=== PATIENT | male | born 1975 | race Caucasian/White ===

== ENCOUNTER → 2016-12-01 | Outpatient (CLI) | payer MEDICARE, MEDICAID ==
[~2016-12-01] MED LIST: PERC5TAB12 PO
--- NOTE | 2016-12-07 00:01 | ECWPNPC ---
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 PAIN THE PATIENT DESCRIBES THE PAIN... FALL RISK SCREENING: SCREENING :NO FALLS IN THE PAST YEAR CURRENT MEDICATIONS TAKING LISINOPRIL 30 MG TABLET 1 TABLET ORALLY ONCE A DAY TAKING TOUJEO SOLOSTAR 300 UNIT/ML SOLUTION PEN-INJECTOR 83 UNITS SUBCUTANEOUS DAILY TAKING METFORMIN HCL 1000 MG TABLET 1 TABLET WITH MEALS ORALLY TWICE A DAY TAKING ATORVASTATIN CALCIUM 40 MG TABLET 1 TABLET ORALLY ONCE A DAY TAKING UNIFINE PENTIPS 31G X 5 MM MISCELLANEOUS DIRECTED ONCE DAILY TAKING PERCOCET 5-325 MG TABLET 1 TABLET NEEDED ORALLY EVERY 6 HRS TAKING OXYCODONE HCL 15 MG TABLET 1 TABLET NEEDED ORALLY BID MEDICATION LIST REVIEWED AND RECONCILED WITH THE PATIENT PAST MEDICAL HISTORY DIABETES MELLITUS TYPE 2 HYPERTENSION HYPERLIPIDEMIA BROKEN BACK FOLLOWING INJURY CUTTING STEEL TANK PER OLD RECORDS, HISTORY OF NARCOTIC ABUSE AND MISUSE ALLERGIES VICODIN: DIARRHEA: ALLERGY SURGICAL HISTORY BACK SURGERY, FOLLOWS WITH DR. JONATHAN ORTIZ 2004 FAMILY HISTORY FATHER: 78 YRS, RENAL FAILURE, DIAGNOSED WITH HEART DISEASE MOTHER: ALIVE 66 YRS SIBLINGS: ALIVE, SISTER -- HEROIN ABUSE IN TREATMENT 2 BROTHER(S) , 2 SISTER(S) . 3 SON(S) , 1 DAUGHTER(S) - HEALTHY. 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 DIET: LOW CONCENTRATED SWEETS. MARITAL STATUS: SINGLE. OTHERS AT HOME: GIRLFRIEND, CHILDREN. ISLAM ISLAM NO CHURCH BELIEFS THAT WOULD IMPACT HEALTH CARE. LEARNING BARRIERS / SPECIAL NEEDS BARRIERS TO LEARNING?NO HEARING IMPAIRED?NO VISION IMPAIRED?NO COGNITIVELY IMPAIRED?NO READINESS TO LEARN?YES LEARNING PREFERENCES?NO LEARNING CAPABILITIES PRESENT?YES EMOTIONAL BARRIERS?NO SPECIAL DEVICES?NO PLACEMENT COORDINATOR NEEDED?NO ADVANCE DIRECTIVES HEALTH CARE PROXY?NO WOULD YOU LIKE MORE INFORMATION?NO DO YOU HAVE A DNR?NO WOULD YOU LIKE MORE INFORMATION?NO LIVING WILL?NO WOULD YOU LIKE MORE INFORMATION?NO POWER OF WATER TREATMENT PLANT SUPERVISOR?NO WOULD YOU LIKE MORE INFORMATION?NO HOSPITALIZATION/MAJOR DIAGNOSTIC PROCEDURE CRUSHED BY KINDRA 1989 REVIEW OF SYSTEMS REVIEWED BY: PROVIDER: LARA ALMEIDA . CONSTITUTIONAL: ANY CHANGE IN YOUR MEDICAL CONDITION? NO . CHILLS NO . FEVER NO . INFECTION: DO YOU HAVE NEW INFECTIONS? NO . DO YOU HAVE HISTORY OF MRSA? NO . MUSCULOSKELETAL: ANY NEW PATTERNS OF PAIN OR NUMBNESS? NO, PT STATES HE WAS BEING TREATED FOR PAIN BY PCP, DR. ROBBINS. PT STATES HE WAS SENT HERE FOR PAIN CONTROL WITH PAIN MEDS BY DR. ROBBINS. . GASTROENTEROLOGY: ANY NEW CHANGE IN BOWEL CONTROL? NO . GENITOURINARY: ANY NEW CHANGE IN BLADDER CONTROL? NO . IS THERE A CHANCE YOU COULD BE ? NO . HEMATOLOGY/LYMPH: DO YOU TAKE ANY BLOOD THINNERS? (FOR EXAMPLE- COUMADIN, PLAVIX, AGGRENOX, PLATEL, PRADAXA, OR XARELTO) NO . WHEN WAS YOUR LAST DOSE? DATE: TIME: . NEUROLOGY: HAVE YOU FALLEN IN THE PAST 6 MONTHS? NO . ANY NEW EXTREMITY NUMBNESS OR WEAKNESS? NO . CARDIOLOGY: DO YOU HAVE A PACEMAKER OR DEFIBRILLATOR? NO . RESPIRATORY: HAVE YOU BEEN SICK IN THE PAST WEEK? NO . FEVER NO . FLU LIKE SYMPTOMS? NO . COUGH NO . INTEGUMENTARY: DO YOU HAVE ANY RASHES OR OPEN SORES? NO . ALLERGIC/IMMUNO: ARE YOU ALLERGIC TO SHELLFISH OR IV DYE? NO . ANY NEW ALLERGIES? NO . PSYCHIATRIC: DO YOU HAVE THOUGHTS OF HURTING YOURSELF OR SOMEONE ELSE? NO . ARE YOU ABUSED, NEGLECTED, OR IN AN UNSAFE ENVIRONMENT? NO . ENDOCRINOLOGY: ARE YOU DIABETIC? YES . OTHER: DO YOU NEED ANY PRESCRIPTIONS? YES, PAIN MEDS . IF YES, PLEASE LIST: ____ . ANY NEW PROBLEMS WITH YOUR MEDICATIONS? NO . WHEN DID YOU LAST EAT? ____ . WHEN DID YOU LAST DRINK? ____ . WHAT DID YOU LAST DRINK? ____ . NAME OF PERSON DRIVING YOU HOME? ____ . DO YOU HAVE ANY OTHER QUESTIONS OR CONCERNS NO . VITAL SIGNS WT 169.4 LBS, HT 71", BMI 23.62 INDEX, BP 144/92 MM HG, HR 96 /MIN, RR 16 /MIN, TEMP 97.7 F, OXYGEN SAT % 98%, SAFE IN ENV? (Y/N) Y, NA INITIALS TL 1302, REVIEWED BY: EM. EXAMINATION GENERAL EXAMINATION: GENERAL APPEARANCE:COMFORTABLE. PSYCHALERT , ORIENTED X 3 . HEENT:NORMOCEPHALIC.PERRLA. NECK:NO LYMPHADENOPATHY, NO THYROID ABNORMALITY. LUNGS:LUNG ESPINO ARE CLEAR TO AUSCULTATION BILATERALLY. GOOD MOVEMENT OF AIR. HEART:S1, S2 IN A REGULAR RATE AND RHYTHM. NO SIGNIFICANT MURMURS, RUBS OR GALLOPS NOTED. BACK:MILD TENDERNESS WITH PALPATION L/S SPINE AND LUMBAR PARASPINALS.WELL HEALED SURGICAL SCAR NOTED. LUMBAR SPINE/LOWER BACK: MOTOR SYSTEM:5/5 BLE. SENSORY EXAM:NORMAL. GAIT:UNREMARKABLE. ASSESSMENTS LUMBAGO WITH SCIATICA, LEFT SIDE - M54.42 (PRIMARY) OTHER CHRONIC PAIN - G89.29 TREATMENT LUMBAGO WITH SCIATICA, LEFT SIDE NOTES: RISKS AND BENEFITS OF NARCOTIC/OPIOD MEDICATIONS WERE REVIEWED WITH PATIENT - THIS INCLUDES BUT IS NOT LIMITED TO RISK OF DEPENDANCE/DEVELOPMENT OF ADDICTION, MOOD DISTURBANCE AND DEPRESSION, OSTEOPOROSIS, HORMONAL AND LABIDAL CHANGES, RESPIRATORY DEPRESSION AND . PATIENT SEEMS RECEPTIVE TO SLOWLY DECREASE AND DISCONTINUE PAIN MEDICATION.STATES HE DOESNT WANT TO BE ON THEM ANYMORE.INFORMED HOW TO SLOWLY DECREASE AND DISCONTINUE PAIN MEDICATION.OFFERED CLONIDINE FOR WITHDRAWAL SYMPTOMS BUT PATIENT DECLINED. PROCEDURE CODES FA211 ESTABILISHED PATIENT [facility] CHARGE G8730 PAIN ASSESS POS TOOL F/U PLAN DOC G8427 DOC MEDS VERIFIED W/PT OR RE DISPOSITION & COMMUNICATION FOLLOW UP 4 WEEKS ELECTRONICALLY SIGNED BY JUAN PABLO FOREBS ON 12/06/2016 AT 01:01 PM EDT DISCLAIMER : THIS IS A VISIT SUMMARY EXTRACTED FROM THE [employer] CHART. IT IS NOT A COPY OF THE [employer] PROGRESS NOTE. ILANA
== END ==
LOC: M PAIN 13:20
PROVIDERS: ATTEND Nurse Practitioner Family
DX: G89.29 Other chronic pain (principal); M54.42 Lumbago with sciatica, left side; E11.9 Type 2 diabetes mellitus without complications; I10 Essential (primary) hypertension; E78.5 Hyperlipidemia, unspecified; Z79.84 Long term (current) use of oral hypoglycemic drugs; Z79.891 Long term (current) use of opiate analgesic; Z79.4 Long term (current) use of insulin; Z79.899 Other long term (current) drug therapy; Z88.5 Allergy status to narcotic agent; Z87.898 Personal history of other specified conditions
CPT/HCPCS: G0463 ×2

== ENCOUNTER 2017-02-12 21:18 | Emergency (ER) | payer MEDICARE, MEDICAID ==
[~2017-02-12] VITALS: Ht 177.8 cm; Wt 75.0 kg
[2017-02-12 21:19] VITALS: BP 153/92
== END 2017-02-12 21:59 | disposition left against medical advice (07) ==
LOC: M ED 21:18
DX: R68.89 Other general symptoms and signs (principal); Z53.29 Procedure and treatment not carried out because of patient's decision for other reasons

== ENCOUNTER 2017-03-12 11:31 | Emergency (ER) | payer MEDICARE, MEDICAID ==
[~2017-03-12] VITALS: Ht 177.8 cm; Wt 75.0 kg
[2017-03-12] MEDS ORDERED: MORPHINE 4 MG/ML 1ML SYRINGE IV ONE (12:30)
--- NOTE | 2017-03-12 13:26 | REP ---
LUMBAR SPINE, FIVE VIEWS: HISTORY: Back pain. The patient is status post L5-S1 anterior and posterior spinal fusion and laminectomy. Bone graft material is present anteriorly and metal rods and pedicle screws posteriorly. The inferior screws at the S1 level are broken. There is no acute fracture. The L3-4 through L5-S1 intervertebral discs are decreased in height consistent with disc degeneration. An osteophyte is present on L3. The visualized facets are normal in appearance. There are 8 mm of grade 1 spondylolisthesis of L5 on S1. IMPRESSION: 1. The patient is status post L5-S1 anterior and posterior spinal fusion and laminectomy. 2. Degenerative change as described above. Signed by Derrell Lee MD 03/12/2017 01:47 P
[2017-03-12] MEDS ORDERED: PERC5TAB12 PO (13:27)
[2017-03-12 13:49] VITALS: BP 127/71
== END 2017-03-12 13:50 | disposition home or self-care (01) ==
LOC: M ED 11:31
DX: G89.29 Other chronic pain (principal); M54.5 Low back pain; Z98.1 Arthrodesis status

== ENCOUNTER 2017-04-25 15:19 | Emergency (ER) | payer MEDICARE, MEDICAID ==
[~2017-04-25] VITALS: Ht 177.8 cm; Wt 75.0 kg
[2017-04-25] MEDS ORDERED: TYLE325T5 PO (15:27)
--- NOTE | 2017-04-25 18:20 | REP ---
Clinical: Pain. Technique: Internal rotation, external rotation, and Y view. Findings: Subtle spurring and cortical irregularity along the inferomedial aspect of the humeral head cannot be excluded and may represent old trauma. No acute fracture dislocation. Acromioclavicular joint and glenoid rim appear normal. Surrounding soft tissues are unremarkable. Impression: Cannot exclude degenerative changes and/or old injury involving the humeral head. No acute fracture or dislocation. Signed by Linwood Tomlinson MD 04/25/2017 06:11 P
--- NOTE | 2017-04-25 18:23 | REP ---
Clinical: Pain with history of prior surgery. Technique: AP, lateral, bilateral oblique and coned-down views of the lumbosacral spine. Comparison: 03/12/2017. Findings: The patient is status post laminectomy and posterior fusion at the L5-S1 level with chronic stable mild anterolisthesis unchanged. The remainder of the lumbosacral spine appears intact and relatively normal. No acute fracture / compression injury or subluxation. Impression: Stable examination. No acute fracture / compression injury or subluxation. Postsurgical changes at the L5-S1 level remain stable. Signed by Linwood Tomlinson MD 04/25/2017 06:13 P
[2017-04-25] MEDS ORDERED: ULTR50TA8 PO (18:50)
[2017-04-25] MEDS ORDERED: NAPR500T PO (18:50)
[2017-04-25 18:59] VITALS: BP 155/92
== END 2017-04-25 19:01 | disposition home or self-care (01) ==
LOC: M ED 15:19
DX: G89.29 Other chronic pain (principal); M54.5 Low back pain; M25.511 Pain in right shoulder; E11.9 Type 2 diabetes mellitus without complications

== ENCOUNTER 2017-11-23 16:46 | Emergency (ER) | payer MEDICARE, MEDICAID | END 2017-11-23 18:12 | disposition home or self-care (01) | LOC: M ED 16:46 | DX: S46.011A Strain of muscle(s) and tendon(s) of the rotator cuff of right shoulder, initial encounter (principal); X58.XXXA Exposure to other specified factors, initial encounter; Y92.9 Unspecified place or not applicable; Y93.89 Activity, other specified; Y99.9 Unspecified external cause status; K04.7 Periapical abscess without sinus; R20.2 Paresthesia of skin; E11.9 Type 2 diabetes mellitus without complications; G89.29 Other chronic pain; M54.5 Low back pain | CPT/HCPCS: 99283 ==

== ENCOUNTER → 2018-02-02 | Outpatient (CLI) | payer MEDICARE, MEDICAID | LOC: M ADAMS 12:05 | DX: M54.41 Lumbago with sciatica, right side (principal); Z98.1 Arthrodesis status; Z98.890 Other specified postprocedural states | CPT/HCPCS: 72110 ==

== ENCOUNTER → 2018-10-24 | Outpatient (REF) ==
[~2018-10-24] MED LIST changes: +AUGM500T34 PO; +HYDR-3715 PO; +NAPR-837 PO; +PRED20TA PO; +TYLE325T5 PO; +ULTR50TA8 PO
--- NOTE | 2018-10-24 14:40 | REP ---
AP AND LATERAL CERVICAL SPINE, THREE VIEWS: HISTORY: Degenerative disc disease. There is no acute fracture or subluxation. The C5-6 intervertebral disc is decreased in height consistent with disc degeneration. Osteophytes are present on C5-7. IMPRESSION: Degenerative change as described above. Electronically Signed by Derrell Lee MD 10/24/2018 02:41 P
--- NOTE | 2018-10-24 15:17 | REP ---
PARTIAL LUMBAR SPINE, THREE VIEWS: HISTORY: Degenerative disc disease. COMPARISON: 02/02/2018. The patient is status post L5-S1 anterior and posterior spinal fusion and laminectomy. Metal hardware and bone graft material are present. There is no acute fracture. The L3-4 through L5-S1 intervertebral discs are decreased in height consistent with disc degeneration. Osteophyte is present on L4. There are 9 mm of grade 1 spondylolisthesis of L5 on S1. Pedicle screws at the S1 level are broken. IMPRESSION: 1. The patient is status post L5-S1 anterior and posterior spinal fusion and laminectomy. 2. Degenerative change as described above. Electronically Signed by Derrell Lee MD 10/24/2018 03:21 P
== END ==
LOC: M SMT 13:39
PROVIDERS: ATTEND Internal Medicine
DX: Z02.71 Encounter for disability determination (principal)

== ENCOUNTER 2019-07-17 19:40 | Emergency (ER) | payer MEDICARE, MEDICAID ==
[~2019-07-17] VITALS: Ht 177.8 cm; Wt 84.1 kg
[2019-07-17] MEDS ORDERED: ADACEL/BOOSTRIX VACCINE (DIPHTH/PERTUSS/ACELL/TETANUS)0.5ML SYR (90715) IM ONE (21:30)
[2019-07-17] MEDS ORDERED: NORCO, ANEXSIA 5/325MG TABLET (HYDROcodone/ACETAMINOPHEN) PO ONE (21:30)
[2019-07-17] MEDS ORDERED: NEOSPORIN OINT 0.9 GM PKT (FLOOR STOCK) TOP ONE (21:30)
[2019-07-17] MEDS ORDERED: NORC1TAB7 PO (21:53)
[2019-07-17 22:40] VITALS: BP 139/88
== END 2019-07-17 22:43 | disposition home or self-care (01) ==
LOC: M ED 19:40
DX: T26.02XA Burn of left eyelid and periocular area, initial encounter (principal); T20.26XA Burn of second degree of forehead and cheek, initial encounter; X13.1XXA Other contact with steam and other hot vapors, initial encounter; Y92.89 Other specified places as the place of occurrence of the external cause; E11.9 Type 2 diabetes mellitus without complications

== ENCOUNTER 2020-06-11 15:52 | Emergency (ER) | payer MEDICARE, MEDICAID ==
[~2020-06-11] VITALS: Ht 177.8 cm; Wt 76.5 kg
[~2020-06-11 15:52] MED LIST changes: +NORC1TAB7 PO
--- NOTE | 2020-06-11 16:16 | REP ---
INDICATION: FALL COMPARISON: None. TECHNIQUE: AP, lateral, bilateral oblique views right wrist. FINDINGS: There is a comminuted Colles' fracture of the distal radial metaphysis with overlying soft tissue swelling. Distal ulna and carpal bones appear intact. IMPRESSION: Comminuted Colles' fracture of the distal radial metaphysis. <Electronically signed by Linwood Tomlinson > 06/11/20 0680
[2020-06-11] MEDS ORDERED: PERC5TAB12 PO (16:59)
[2020-06-11] MEDS ORDERED: PERCOCET 5MG/325MG TAB PO ONE (17:00)
[2020-06-11 17:23] VITALS: BP 131/75
== END 2020-06-11 17:24 | disposition home or self-care (01) ==
LOC: M ED 15:52
DX: S52.531A Colles' fracture of right radius, initial encounter for closed fracture (principal); W19.XXXA Unspecified fall, initial encounter; Y92.018 Other place in single-family (private) house as the place of occurrence of the external cause; E11.9 Type 2 diabetes mellitus without complications; M54.5 Low back pain

== ENCOUNTER → 2020-06-16 | Outpatient (CLI) | payer MEDICARE, MEDICAID | LOC: M LABSMTC 11:22 | PROVIDERS: ATTEND Anesthesiology | DX: Z01.812 Encounter for preprocedural laboratory examination (principal); Z20.822 Contact with and (suspected) exposure to COVID-19 ==

== ENCOUNTER 2020-06-17 09:26 | Day surgery (SDC) | payer MEDICARE, MEDICAID ==
[~2020-06-17] VITALS: Ht 177.8 cm; Wt 73.9 kg
[~2020-06-17 09:26] MED LIST changes: +LIDOCAINE 1% MDV 20ML VIAL SQ PRN; +LR 1,000 ML IV ONE; +MIDAZOLAM INJ 2MG/2ML VIAL (J2250 PER 1MG) IV PRN; +ceFAZolin SOD 2 GM in IV 1 EA IV ONE; +fentaNYL 100 MCG/2 ML INJECTION (J3010) IV PRN
[2020-06-17] MEDS ORDERED: HumaLOG INSULIN (NovoLOG) PER UNIT SC ONE ×2 (10:45→13:30)
[2020-06-17] MEDS ORDERED: fentaNYL 250 MCG/5 ML INJECTION (J3010) As Ordered ONE (10:54)
[2020-06-17] MEDS ORDERED: LIDOCAINE 2% 100MG/5ML SDV (FOR ANES.) As Ordered ONE (10:54)
[2020-06-17] MEDS ORDERED: propofoL 200 MG/20 ML VIAL As Ordered ONE (10:54)
[2020-06-17] MEDS ORDERED: MIDAZOLAM INJ 2MG/2ML VIAL (J2250 PER 1MG) As Ordered ONE ×2 (10:54→13:58)
[2020-06-17] MEDS ORDERED: dexameTHASONE 4 MG/ML 1ML VIAL (J1100 PER 1MG) As Ordered ONE ×2 (10:54→11:12)
[2020-06-17] MEDS ORDERED: LIDOCAINE W/EPINEPHRINE 1% 20ML VIAL As Ordered ONE (11:18)
[2020-06-17] MEDS ORDERED: ACETAMINOPHEN 1000MG 100ML IV BTL (OFIRMEV) (J0131 PER 10MG) As Ordered ONE (12:29)
[2020-06-17] MEDS ORDERED: PHENYLephrine HCL 500 MCG/5 ML (100MCG/ML) SYRINGE (J2370) As Ordered ONE (12:54)
--- NOTE | 2020-06-17 13:08 | REP ---
INDICATION: ORIF-RIGHT. Forearm. COMPARISON: Comparison wrist radiographs June 11, 2020.. TECHNIQUE: Six views. Procedural imaging. 38.2 seconds of fluoroscopy time is reported. FINDINGS: A sequence of 6 last image hold fluoroscopically obtained spot radiographs of the left wrist document ventral fixation plating for reduction and fixation of distal radial metaphyseal fracture. Alignment is anatomic. IMPRESSION: Procedural imaging. <Electronically signed by Stuart De La Fuente > 06/17/20 [id number]
[2020-06-17] MEDS: HYDROMORPHONE HCL 0.5 MG/ 0.5 ML SYRINGE (J1170 PER 1) IV PRN ×4 (13:15→13:30)
[2020-06-17] MEDS: oxyCODONE 5MG TAB PO PRN ×2 (13:15→13:45)
[2020-06-17] MEDS ORDERED: oxyCODONE 5MG TAB As Ordered ONE (13:16)
[2020-06-17] MEDS ORDERED: HYDROMORPHONE HCL 0.5 MG/ 0.5 ML SYRINGE (J1170 PER 1) As Ordered ONE ×2 (13:17→13:24)
[2020-06-17] MEDS ORDERED: LR 1,000 ML IV SCH (13:30)
[2020-06-17] MEDS ORDERED: ONDANSETRON 4MG/2ML VIAL IV PRN (13:30)
[2020-06-17] MEDS: fentaNYL 100 MCG/2 ML INJECTION (J3010) IV PRN ×4 (13:40→13:55)
[2020-06-17] MEDS ORDERED: dexameTHASONE 10MG/1ML VIAL PRES.FREE (J1100 PER 1MG) As Ordered ONE (14:00)
[2020-06-17] MEDS ORDERED: LIDOCAINE 1% MDV 20ML VIAL As Ordered ONE (14:00)
[2020-06-17] MEDS ORDERED: ROPIvacaine 0.5% 30ML INJECTION (J2795 PER 1MG) As Ordered ONE (14:01)
[2020-06-17] MEDS ORDERED: LIDOCAINE 1% MDV 20ML VIAL XX ONE (14:15)
[2020-06-17] MEDS ORDERED: ROPIvacaine 0.5% 30ML INJECTION (J2795 PER 1MG) XX ONE (14:15)
--- NOTE | 2020-06-17 14:24 | RO ---
OPERATIVE NOTE DATE OF OPERATION: 06/17/2020 PREOPERATIVE DIAGNOSIS: Right distal radius fracture. POSTOPERATIVE DIAGNOSIS: Right distal radius fracture. PLANNED PROCEDURE: Right distal radius fracture, open reduction and internal fixation with three-fragment fixation. PROCEDURE PERFORMED: Right distal radius fracture, open reduction and internal fixation with three-fragment fixation. SURGEON: Reagan Thakur MD ANESTHESIOLOGIST: Dr. Corbett ANESTHESIA: General anesthetic. OPERATIVE PREAMBLE: This 45-year-old man sustained a right distal radius fracture. This was dorsally angulated. He wished to go ahead with surgery. We discussed the pros, cons, risks, benefits and I reminded him of these risks in preoperative holding. I marked the right upper extremity, performed a neurovascular exam and proceeded to surgery. OPERATIVE REPORT: The patient was brought to the operating theater. He was placed supine on the operating room hand table to the patient's right side. All bony prominences were appropriately padded. SCDs were used on the down legs. Two grams of IV Ancef were administered prior to the start of the case. General anesthesia was induced. The bed was turned to 90 degrees. An 18-inch tourniquet was applied to the right upper extremity and appropriately padded. The limb was prepped and draped in the usual sterile fashion with chlorhexidine based prep solution, allowing over three minutes prep solution drying time prior to draping. A preoperative time-out was performed, confirming the site, the patient, and surgery. I began by exsanguinating the limb and elevating the tourniquet to 250 mmHg throughout the case which last approximately 50 minutes. I began by making a standard volar incision centered proximal to the wrist crease overlying the FCR tendon. I carried dissection down through skin and subcutaneous tissue, achieving meticulous hemostasis. Incision length was approximately 2-1/2 inches. I incised the FCR tendon sheath as well as the subsheath. I retracted FPL muscle belly and tendon medially. I used an L-shaped incision overlying the pronator quadratus muscle and elevated that off from radial side to ulnar side. I identified the fracture site. I thoroughly cleaned away any interposed periosteum, fracture hematoma and muscle. I achieved a preliminary reduction. There are three fragments of the joint, the tip of the styloid fragment as well as an intra-articular split that is nondisplaced as well as the transverse metaphyseal fracture. I anatomically reduced the fracture. I chose a [employer] precontoured volar 2-hole proximal plate. I applied this distally with a locking screw 12mm in the proximal end of the plate. I inserted first one cortical screw and then filled this up with four locking screws that all measured 20 mm to fixate the distal lock. I then used the oblong hole to enter the plate on both AP and lateral radiographs and then secured this down to bone to appropriately reduce the fracture and hold it in anatomic alignment. I then used a locking screw in the proximal end of the plate 14 mm long and then changed out the long cortical screw, just 16 mm long cortical screw. Fracture alignment was within normal limits and final radiographs were taken, AP, lateral and true lateral 30 degree flexed view. These were saved onto the radiograph system. The tourniquet was let down, the wound thoroughly irrigated. Bleeding meticulously hemostased. The subcutaneous tissue was closed with interrupted 2-0 Vicryl sutures and the skin with running 3-0 Monocryl suture. 6 mL of 1% lidocaine with epinephrine were instilled around the incision at the start of the case. 1/2-inch Steri-Strips cut in half were then applied to the wound followed by gauze and sterile cast padding. Volar plaster of Evelyn splint was then placed and overwrapped with 6-inch Jermaine wrap in a loose fashion. The splint was allowed to thoroughly dry. The tourniquet was let down prior to the end of the case. The patient was woken up from general anesthetic, transferred off the operating table and take to the postanesthetic care unit in stable condition. All sponge, needle, and instrument counts were correct. No complications. Estimated blood loss: 20 cc. Plan for the patient is to follow up in the office in two weeks time. Appropriate cast care and narcotic instructions given. Prescription will be sent by me electronically to the pharmacy of choice which is [facility] in [place]. They can insert a finger as well as elbow range of motion and I will likely discontinue the splint after two weeks if fixation is appropriate with heavy lifting until the six week cara. The patient may be discharged home according to day surgery criteria. ILANA
[2020-06-17 15:10] VITALS: BP 139/87
== END 2020-06-17 15:40 | disposition home or self-care (01) ==
LOC: M SDC 09:26
PROVIDERS: ATTEND Orthopaedic Surgery Sports Medicine
DX: S52.501A Unspecified fracture of the lower end of right radius, initial encounter for closed fracture (principal); W00.9XXA Unspecified fall due to ice and snow, initial encounter; Y92.89 Other specified places as the place of occurrence of the external cause; Y93.9 Activity, unspecified; Y99.9 Unspecified external cause status; E11.9 Type 2 diabetes mellitus without complications; Z91.81 History of falling
CPT/HCPCS: 25609; 76000; C1713; J0131; J0690; J2250; J3010

== ENCOUNTER → 2020-07-02 | Outpatient (CLI) | payer MEDICARE, MEDICAID ==
[~2020-07-02] MED LIST changes: -LIDOCAINE 1% MDV 20ML VIAL SQ PRN; -LR 1,000 ML IV ONE; -MIDAZOLAM INJ 2MG/2ML VIAL (J2250 PER 1MG) IV PRN; -ceFAZolin SOD 2 GM in IV 1 EA IV ONE; -fentaNYL 100 MCG/2 ML INJECTION (J3010) IV PRN
--- NOTE | 2020-07-02 10:16 | REP ---
INDICATION: F/U. COMPARISON: Comparison study June 11, 2020.. TECHNIQUE: AP and lateral views of the right wrist are obtained. FINDINGS: A screw plate fixation device is seen in place in the distal radius along its ventral surface. Alignment is anatomic. Slightly comminuted distal metaphyseal fracture again seen. No ulnar fracture is appreciated. IMPRESSION: Status post open reduction internal fixation plating distal radial fracture. Anatomic alignment. <Electronically signed by Stuart De La Fuente > 07/02/20 1017
== END ==
LOC: M SOG 06-30 09:30
PROVIDERS: ATTEND Orthopaedic Surgery Sports Medicine
DX: S52.531D Colles' fracture of right radius, subsequent encounter for closed fracture with routine healing (principal); W19.XXXD Unspecified fall, subsequent encounter; Z96.7 Presence of other bone and tendon implants

== ENCOUNTER → 2020-08-06 | Outpatient (CLI) | payer MEDICARE, MEDICAID ==
--- NOTE | 2020-08-06 11:42 | REP ---
INDICATION: F/U. COMPARISON: 07/02/2020. TECHNIQUE: Two views right wrist. FINDINGS: Metallic plate and screws are again seen in the distal radius for a fracture at that location. Alignment and position is unchanged. There appears to be mild increased healing callus formation on the lateral view. IMPRESSION: Metallic internal fixation distal right radius for fracture at that location. Mild increased healing callus formation. <Electronically signed by Eliecer Roger > 08/06/20 [id number]
== END ==
LOC: M SOG 09:27
PROVIDERS: ATTEND Orthopaedic Surgery Sports Medicine
DX: S52.591D Other fractures of lower end of right radius, subsequent encounter for closed fracture with routine healing (principal); X58.XXXD Exposure to other specified factors, subsequent encounter; Z96.7 Presence of other bone and tendon implants

== ENCOUNTER 2020-11-12 08:21 | Emergency (ER) | payer OTHER, MEDICAID ==
[~2020-11-12] VITALS: Ht 177.8 cm; Wt 67.4 kg
[2020-11-12] MEDS ORDERED: NS 1,000 ML IV ONE ×2 (09:00→09:45)
[2020-11-12 09:29] LABS: ABG BASE EXCESS -10.2 (-2.0-2.0); ABG HCO3 14.1 MEQ/L (22.0-26.0); ABG O2 SATURATION 97.4 % (95.0-99.0); ABG PARTIAL PRESSURE CO2 26.9 mmHg (35.0-45.0); ABG PARTIAL PRESSURE O2 96.5 mmHg (75.0-100.0); ABG STANDARD HCO3 16.4 MEQ/L (22.0-26.0); ABG TOTAL CO2 14.9 MEQ/L (22.0-29.0); ABG pH (ARTERIAL) 7.338 UNITS (7.350-7.450); BASO % 0.3 % (0.0-1.0); EOS # 0.1 10^3/uL (0.0-0.5); EOS % 0.4 % (0.0-3.0); HEMATOCRIT 35.4 % (42.0-52.0); HEMOGLOBIN 11.2 g/dl (13.5-17.5); LYMPH # 1.3 10^3/uL (1.5-5.0); MEAN CORPUSCULAR HEMOGLOBIN 24.9 pg (27.0-33.0); MEAN CORPUSCULAR HGB CONC 31.6 g/dl (32.0-36.5); MEAN CORPUSCULAR VOLUME 78.7 fl (80.0-96.0); MONO # 0.7 10^3/uL (0.0-0.8); MONO % 5.1 % (2.0-8.0); NEUTROPHILS % 84.1 % (36.0-66.0); PLATELET COUNT, AUTOMATED 648 10^3/uL (150-450); WHITE BLOOD COUNT 14.2 10^3/uL (4.0-10.0)
[2020-11-12 10:08] LABS: ALBUMIN 2.5 GM/DL (3.2-5.2); ALT/SGPT 8 U/L (12-78); BILIRUBIN,DIRECT 0.1 MG/DL (0.0-0.2); BILIRUBIN,TOTAL 0.5 MG/DL (0.2-1.0); BLOOD UREA NITROGEN 26 MG/DL (7-18); CARBON DIOXIDE LEVEL 13 MEQ/L (21-32); CHLORIDE LEVEL 89 MEQ/L (98-107); CK-MB VALUE MASS < 1.0 NG/ML (<3.6); CPK CREATINE PHOSPHOKINASE 17 U/L (39-308); CREATININE FOR GFR 1.13 MG/DL (0.70-1.30); GLOMERULAR FILTRATION RATE > 60.0 (>60); GLUCOSE, FASTING 623 MG/DL (70-100); LIPASE 53 U/L (73-393); MB/CK RELATIVE INDEX 5.88 (< OR =4); POTASSIUM SERUM 4.8 MEQ/L (3.5-5.1); SODIUM LEVEL 127 MEQ/L (136-145); TOTAL PROTEIN 7.7 GM/DL (6.4-8.2); TROPONIN I < 0.02 NG/ML (< 0.10)
[2020-11-12 10:44] LABS: HEMOGLOBIN A1c > 14.0 %
[2020-11-12] MEDS ORDERED: HumuLIN R (REGULAR) INSULIN (NovoLIN R) **100U/ML** PER UNIT IV ONE (10:45)
[2020-11-12 11:00] LABS: RSV AMPLIFICATION NEGATIVE (NEGATIVE)
[2020-11-12 13:44] LABS: BLOOD UREA NITROGEN 23 MG/DL (7-18); CALCIUM LEVEL 8.4 MG/DL (8.5-10.1); CARBON DIOXIDE LEVEL 17 MEQ/L (21-32); CHLORIDE LEVEL 97 MEQ/L (98-107); CREATININE FOR GFR 0.97 MG/DL (0.70-1.30); GLOMERULAR FILTRATION RATE > 60.0 (>60); GLUCOSE, FASTING 414 MG/DL (70-100); POTASSIUM SERUM 4.8 MEQ/L (3.5-5.1); SODIUM LEVEL 132 MEQ/L (136-145)
[2020-11-12 13:45] VITALS: BP 150/81
[2020-11-12] MEDS ORDERED: METF-838 PO (14:09)
[2020-11-12] MEDS ORDERED: GLUCMIS7 XX (14:14)
[2020-11-12] MEDS ORDERED: ASSU1MIS54 TOP (14:15)
[2020-11-12] MEDS ORDERED: LEVE1INJ5 SC (15:27)
--- NOTE | 2020-11-12 19:53 | ECGEPIP ---
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
[2020-11-13] MEDS ORDERED: LEVE1INJ5 SC (13:53)
[2020-11-13] MEDS ORDERED: METF-838 PO (13:53)
== END 2020-11-12 14:37 | disposition home or self-care (01) ==
LOC: M ED 08:21
DX: E86.0 Dehydration (principal); E11.69 Type 2 diabetes mellitus with other specified complication; R16.0 Hepatomegaly, not elsewhere classified

== ENCOUNTER 2020-11-13 13:24 | Inpatient (IN) | payer OTHER, MEDICAID ==
[2020-11-13] VITALS (8 sets, daily range): BP systolic 123–153; BP diastolic 71–107
[~2020-11-13] VITALS: Ht 162.6 cm; Wt 75.0 kg
[~2020-11-13 13:24] MED LIST changes: +ASSU1MIS54 TOP; +GLUCMIS7 XX; +LEVE1INJ5 SC; +METF-838 PO
[2020-11-13] MEDS ORDERED: NS 1,000 ML IV ONE (13:50)
[2020-11-13] MEDS ORDERED: METF-838 PO (13:53)
[2020-11-13] MEDS ORDERED: LEVE1INJ5 SC (13:53)
[2020-11-13 13:58] LABS: VENOUS BASE EXCESS -29.4 (-2.0-2.0); VENOUS HCO3 3.4 MEQ/L (23.0-27.0); VENOUS O2 SATURATION 94.4 % (60.0-80.0); VENOUS PARTIAL PRESSURE O2 95.9 mmHg (30.0-50.0); VENOUS PH 6.846 UNITS (7.330-7.430); VENOUS STANDARD HCO3 4.8 MEQ/L
[2020-11-13] MEDS ORDERED: INSULIN REGULAR IN 0.9 % NACL 100 UNIT in IV 1 EA IV SCH ×6 (14:05→16:30)
[2020-11-13] MEDS ORDERED: INSULIN IV RATE CHANGE DOCUMENTATION ML/HR XX SCH (14:05)
[2020-11-13 14:10] LABS: BASO # 0.1 10^3/uL (0.0-0.2); BASO % 0.4 % (0.0-1.0); HEMATOCRIT 38.4 % (42.0-52.0); HEMOGLOBIN 11.3 g/dl (13.5-17.5); LYMPH # 1.3 10^3/uL (1.5-5.0); LYMPH % 4.2 % (24.0-44.0); MEAN CORPUSCULAR HEMOGLOBIN 25.2 pg (27.0-33.0); MEAN CORPUSCULAR HGB CONC 29.4 g/dl (32.0-36.5); MEAN CORPUSCULAR VOLUME 85.7 fl (80.0-96.0); MONO # 1.1 10^3/uL (0.0-0.8); MONO % 3.8 % (2.0-8.0); NEUTROPHILS # 26.6 10^3/uL (1.5-8.5); NEUTROPHILS % 89.5 % (36.0-66.0); PLATELET COUNT, AUTOMATED 862 10^3/uL (150-450); RED BLOOD COUNT 4.48 10^6/uL (4.30-6.10); WHITE BLOOD COUNT 29.7 10^3/uL (4.0-10.0)
[2020-11-13] MEDS ORDERED: NS 1,000 ML IV SCH (14:35)
[2020-11-13 14:38] LABS: CALCIUM LEVEL 9.7 MG/DL (8.5-10.1); CREATININE FOR GFR 1.47 MG/DL (0.70-1.30); GLOMERULAR FILTRATION RATE 54.9 (>60); POTASSIUM SERUM 5.8 MEQ/L (3.5-5.1)
[2020-11-13 15:05] LABS: RSV AMPLIFICATION NEGATIVE (NEGATIVE)
[2020-11-13 15:10] LABS: ABG HCO3 2.5 MEQ/L (22.0-26.0); ABG O2 SATURATION 98.4 % (95.0-99.0); ABG STANDARD HCO3 4.8 MEQ/L (22.0-26.0); ABG TOTAL CO2 2.9 MEQ/L (22.0-29.0)
[2020-11-13 15:19] LABS: HEMOGLOBIN A1c > 14.0 %
[2020-11-13] MEDS: INSULIN IV RATE CHANGE DOCUMENTATION ML/HR XX SCH ×8 (15:20→23:54)
[2020-11-13 15:24] LABS: ABG pH (ARTERIAL) 6.894 UNITS (7.350-7.450)
[2020-11-13 15:25] LABS: ABG PARTIAL PRESSURE CO2 13.4 mmHg (35.0-45.0)
[2020-11-13] MEDS ORDERED: SODIUM BICARBONATE 8.4% INJ 50 ML SYRINGE IV SCH (15:30)
[2020-11-13] MEDS ORDERED: NS 2,000 ML IV ONE (16:15)
[2020-11-13] MEDS ORDERED: SODIUM BICARBONATE 75 MEQ in NS 0.45% 1,000 ML IV SCH (17:30)
--- NOTE | 2020-11-13 17:55 | HPEPDOC ---
General Date of Admission Nov 13, 2020 Date of Service: Nov 13, 2020 Chief Complaint The patient is a 45-year-old male admitted with a reason for visit of Shortness Of Breath. Source: Family History of Present Illness Mr. Jane is a 45 year old male with DM type 2 who presents with dyspnea and found to have DKA. Patient is not verbal and sometimes responds questions with head nods, but otherwise unable to provide a history. Per ED provider, he was able to answer questions better when mother, Mis Jane, was around. I called his mother. Patient does not have a PCP and has not been taking diabetic medications. He has been getting thinner and thinner. He was last seen about 6 days ago before staying at his girlfriend's place. He was not feeling well and was having trouble urinating. Otherwise, he has not been drinking very much fluids. When I saw the patient, he was in breathing rapidly and shallowly. He did not say anything, but followed me with his eyes. He sometimes nodded to questions, but other times just stared at me. Lungs were clear. He was tachycardic. No pitting edema. He has very sluggish capillary refill. Unable to obtain history or ROS. Information obtained from chart and mother. ABG pH 6.894, Bicarb 4, Gap 32, K 5.8, glucose 597. Patient was started on insulin drip and was given 1L in the ED. Will give 2 more liters and a bicarb drip. Patient will be admitted for DKA. Home Medications Scheduled Insulin Detemir (Levemir Flextouch) 100 Unit/1 Ml Insuln.pen, 20 UNIT SC DAILY, (Reported) Metformin HCl (Metformin HCl ER) 500 Mg Tab.er.24h, 500 MG PO BID, (Reported) Allergies Coded Allergies: No Known Allergies (Unverified , 06/16/20) Past Medical History Medical History 1. Diabetes mellitus type 2 2. Hypertension 3. Hyperlipidemia 4. Broken back following injury cutting steel tank 5. Per old records, history of narcotic abuse and misuse Surgical History 1. Back surgery Family History Father: , renal failure, heart disease Mother: Alive Social History * Smoker: other (Unknown, patient unable to answer) Alcohol: other (Unknown, patient unable to answer) Drugs: other (Unknown, patient unable to answer) A-FIB/CHADSVASC A-FIB History Current/History of A-Fib/PAF?: No Review of Systems Other systems Unable to obtain as patient was not answering questions Physical Examination General Exam: Positive: Moderate Distress; Negative: Cooperative Eye Exam: Positive: Sclera icteric Chest Exam: Positive: Clear to auscultation Heart Exam: Positive: Tachycardic, Regular Rhythm Abdomen Exam: Positive: Normal bowel sounds Extremity Exam: Negative: Edema Skin Exam: Negative: Nl turgor and temperature Neuro Exam: Positive: Other (Unable to prarticipate in neuro exam) Psych Exam: Negative: Mental status NL Vital Signs Vital Signs Date Time Temp Pulse Resp B/P (MAP) Pulse Ox O2 Delivery O2 Flow Rate FiO2 11/13/20 15:18 96.0 123 33 161/94 (116) 100 Room Air Laboratory Data Labs 24H Laboratory Tests 2 11/13/20 13:43: POC Glucose (Misc Panel) 585*H, POC Sodium (Misc Panel) 134L, POC Potassium (Misc Panel) 5.5H, POC Chloride (Misc Panel) 107, POC Total CO2 (Misc Panel) 5.0L, POC Blood Urea Nitrogen (Misc Panel 26, POC Ionized Calcium (Misc Panel) 5.2, POC Creatinine (Misc Panel) 1.1, POC Hematocrit (Misc Panel) 38.0 11/13/20 13:47: Immature Granulocyte % (Auto) 2.1, Neutrophils (%) (Auto) 89.5H, Lymphocytes (%) (Auto) 4.2L, Monocytes (%) (Auto) 3.8, Eosinophils (%) (Auto) 0.0, Basophils (%) (Auto) 0.4, Neutrophils # (Auto) 26.6H, Lymphocytes # (Auto) 1.3L, Monocytes # (Auto) 1.1H, Eosinophils # (Auto) 0.0, Basophils # (Auto) 0.1, Nucleated Red Blood Cells % (auto) 0.0, Blood Gas Bicarbonate Standard 4.8, Venous Blood pH 6.846L, Venous Blood Partial Pressure CO2 20.0L, Venous Blood Partial Pressure O2 95.9H, Venous Blood Total Carbon Dioxide 4.0L, Venous Blood HCO3 3.4L, Venous Blood Oxygen Saturation 94.4H, Venous Blood Base Excess -29.4L, Anion Gap 32H, Glomerular Filtration Rate 54.9L, Calcium Level 9.7# 11/13/20 13:48: Estimated Mean Plasma Glucose , Hemoglobin A1c > 14.0 11/13/20 13:56: Coronavirus (COVID-19)(PCR) NEGATIVE, Influenza Type A (RT-PCR) NEGATIVE, I nfluenza Type B (RT-PCR) NEGATIVE, Respiratory Syncytial Virus (PCR) NEGATIVE 11/13/20 14:59: Blood Gas Bicarbonate Standard 4.8L, Arterial Blood pH 6.894*L, Arterial Blood Partial Pressure CO2 13.4*L, Arterial Blood Partial Pressure O2 147.0H, Arterial Blood Total CO2 2.9L, Arterial Blood HCO3 2.5L, Arterial Blood Base Excess - 29.0L, Arterial Blood Oxygen Saturation 98.4 11/13/20 15:19: Bedside Glucose (Misc Panel) 496H CBC/BMP Laboratory Tests 11/13/20 13:47 Assessment/Plan Mr. Jane is a 45 year old male with DM type 2 who presents with dyspnea and found to have DKA. He is non-compliant diabetic. His HbA1c is >14. He also does not have a PCP. Patient will be put on an insulin drip and be given IVF. He will have frequent BMP checks to monitor potassium, acidosis, and gap closure. Plan / VTE VTE Prophylaxis Ordered?: Yes Plan Plan 1. DKA -ABG pH 6.894 -Bicarb 4, Gap 32 (high anion gap metabolic acidosis) -K 5.8, glucose 597 -Insulin drip per protocol -IVF -Bicarb drip 2. Non-compliance -Patient will need a PCP prior to discharge 3. DVT ppx -Heparin Disposition: Pending clinical improvement SIMONE CARSON DO Nov 13, 2020 16:36
[2020-11-13 17:58] LABS: ACETONE/KETONE > 46.00 MG/DL (<2.81); BLOOD UREA NITROGEN 28 MG/DL (7-18); CALCIUM LEVEL 9.1 MG/DL (8.5-10.1); CARBON DIOXIDE LEVEL 6 MEQ/L (21-32); CHLORIDE LEVEL 105 MEQ/L (98-107); CREATININE FOR GFR 1.28 MG/DL (0.70-1.30); GLOMERULAR FILTRATION RATE > 60.0 (>60); POTASSIUM SERUM 4.6 MEQ/L (3.5-5.1); SODIUM LEVEL 139 MEQ/L (136-145)
[2020-11-13 17:59] LABS: GLUCOSE, FASTING 495 MG/DL (70-100)
[2020-11-13] MEDS: KCL 20MEQ in NS 1000ML 1,000 ML IV SCH ×3 (18:34→23:51)
[2020-11-13 19:09] LABS: BLOOD UREA NITROGEN 25 MG/DL (7-18); CALCIUM LEVEL 8.8 MG/DL (8.5-10.1); CARBON DIOXIDE LEVEL 6 MEQ/L (21-32); CHLORIDE LEVEL 110 MEQ/L (98-107); CREATININE FOR GFR 1.13 MG/DL (0.70-1.30); GLOMERULAR FILTRATION RATE > 60.0 (>60); GLUCOSE, FASTING 372 MG/DL (70-100); POTASSIUM SERUM 4.7 MEQ/L (3.5-5.1); SODIUM LEVEL 142 MEQ/L (136-145)
[2020-11-13 21:05] LABS: BLOOD UREA NITROGEN 24 MG/DL (7-18); CALCIUM LEVEL 8.5 MG/DL (8.5-10.1); CARBON DIOXIDE LEVEL 11 MEQ/L (21-32); CHLORIDE LEVEL 115 MEQ/L (98-107); CREATININE FOR GFR 1.12 MG/DL (0.70-1.30); GLOMERULAR FILTRATION RATE > 60.0 (>60); GLUCOSE, FASTING 249 MG/DL (70-100); POTASSIUM SERUM 4.2 MEQ/L (3.5-5.1); SODIUM LEVEL 144 MEQ/L (136-145)
[2020-11-13] MEDS: HEPARIN SOD (PORCINE) 5000UNITS/ML 1ML VIAL/SYRINGE SC SCH (21:09)
--- NOTE | 2020-11-13 21:30 | ECGEPIP ---
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
[2020-11-13 23:19] LABS: BLOOD UREA NITROGEN 22 MG/DL (7-18); CALCIUM LEVEL 8.4 MG/DL (8.5-10.1); CARBON DIOXIDE LEVEL 14 MEQ/L (21-32); CHLORIDE LEVEL 117 MEQ/L (98-107); CREATININE FOR GFR 1.19 MG/DL (0.70-1.30); GLOMERULAR FILTRATION RATE > 60.0 (>60); GLUCOSE, FASTING 175 MG/DL (70-100); POTASSIUM SERUM 4.1 MEQ/L (3.5-5.1); SODIUM LEVEL 145 MEQ/L (136-145)
[2020-11-13 23:49] LABS: ABG BASE EXCESS -9.6 (-2.0-2.0); ABG HCO3 15.1 MEQ/L (22.0-26.0); ABG O2 SATURATION 98.7 % (95.0-99.0); ABG PARTIAL PRESSURE CO2 28.9 mmHg (35.0-45.0); ABG PARTIAL PRESSURE O2 139.5 mmHg (75.0-100.0); ABG STANDARD HCO3 16.7 MEQ/L (22.0-26.0); ABG pH (ARTERIAL) 7.335 UNITS (7.350-7.450)
[2020-11-13] MEDS: KCL 20MEQ IN D5/0.45NS 1000ML 1,000 ML IV SCH (23:51)
[2020-11-14] VITALS (14 sets, daily range): BP systolic 104–143; BP diastolic 55–77
[2020-11-14] MEDS: ACETAMINOPHEN TAB 650MG DOSE (2X325MG) PO PRN ×2 (00:01→10:14)
[2020-11-14 01:02] LABS: BLOOD UREA NITROGEN 22 MG/DL (7-18); CARBON DIOXIDE LEVEL 17 MEQ/L (21-32); CHLORIDE LEVEL 117 MEQ/L (98-107); CREATININE FOR GFR 1.11 MG/DL (0.70-1.30); GLOMERULAR FILTRATION RATE > 60.0 (>60); GLUCOSE, FASTING 174 MG/DL (70-100); SODIUM LEVEL 146 MEQ/L (136-145)
[2020-11-14] MEDS: INSULIN IV RATE CHANGE DOCUMENTATION ML/HR XX SCH ×3 (01:08→08:02)
[2020-11-14] MEDS: KCL 20MEQ in NS 1000ML 1,000 ML IV SCH (03:03)
[2020-11-14 03:10] LABS: BLOOD UREA NITROGEN 18 MG/DL (7-18); CALCIUM LEVEL 7.6 MG/DL (8.5-10.1); CARBON DIOXIDE LEVEL 18 MEQ/L (21-32); CHLORIDE LEVEL 119 MEQ/L (98-107); CREATININE FOR GFR 1.09 MG/DL (0.70-1.30); GLOMERULAR FILTRATION RATE > 60.0 (>60); GLUCOSE, FASTING 226 MG/DL (70-100); POTASSIUM SERUM 3.8 MEQ/L (3.5-5.1); SODIUM LEVEL 147 MEQ/L (136-145)
[2020-11-14] MEDS: KCL 20MEQ IN D5/0.45NS 1000ML 1,000 ML IV SCH ×2 (03:31→07:04)
[2020-11-14 04:49] LABS: BLOOD UREA NITROGEN 16 MG/DL (7-18); CALCIUM LEVEL 7.6 MG/DL (8.5-10.1); CARBON DIOXIDE LEVEL 19 MEQ/L (21-32); CHLORIDE LEVEL 119 MEQ/L (98-107); CREATININE FOR GFR 1.05 MG/DL (0.70-1.30); GLOMERULAR FILTRATION RATE > 60.0 (>60); GLUCOSE, FASTING 228 MG/DL (70-100); POTASSIUM SERUM 3.8 MEQ/L (3.5-5.1); SODIUM LEVEL 146 MEQ/L (136-145)
[2020-11-14 07:13] LABS: BLOOD UREA NITROGEN 15 MG/DL (7-18); CALCIUM LEVEL 8.2 MG/DL (8.5-10.1); CARBON DIOXIDE LEVEL 19 MEQ/L (21-32); CHLORIDE LEVEL 118 MEQ/L (98-107); CREATININE FOR GFR 1.16 MG/DL (0.70-1.30); GLOMERULAR FILTRATION RATE > 60.0 (>60); GLUCOSE, FASTING 219 MG/DL (70-100); POTASSIUM SERUM 3.4 MEQ/L (3.5-5.1); SODIUM LEVEL 145 MEQ/L (136-145)
[2020-11-14] MEDS ORDERED: GLUCOSE 4GM CHEW TABLET PO PRN (07:50)
[2020-11-14] MEDS ORDERED: DEXTROSE 50% 50 ML SYRINGE IV PRN (07:50)
[2020-11-14] MEDS ORDERED: GLUCAGON INJ 1MG VIAL SC PRN (07:50)
[2020-11-14] MEDS ORDERED: ONDANSETRON 4MG/2ML VIAL IV PRN (07:50)
[2020-11-14] MEDS ORDERED: LEVEMIR (INSULIN DETEMIR) 1 UNITS/0.01ML SC ONE (08:00)
[2020-11-14] MEDS: HEPARIN SOD (PORCINE) 5000UNITS/ML 1ML VIAL/SYRINGE SC SCH ×2 (08:15→20:24)
[2020-11-14] MEDS ORDERED: VANCOMYCIN HCL 750 MG, VIAL MATE ADAPTER 1 EACH in NS 250 ML IV ONE ×2 (09:00→10:00)
[2020-11-14] MEDS ORDERED: POTASSIUM CHLORIDE 10 MEQ SR TABLET PO ONE (10:35)
[2020-11-14] MEDS ORDERED: METOCLOPRAMIDE INJ 10MG/2ML VIAL (J2765 PER 1) IV PRN (10:35)
[2020-11-14 11:06] LABS: BASO % 0.1 % (0.0-1.0); EOS % 0.1 % (0.0-3.0); HEMATOCRIT 30.4 % (42.0-52.0); HEMOGLOBIN 10.1 g/dl (13.5-17.5); LYMPH # 0.7 10^3/uL (1.5-5.0); LYMPH % 4.4 % (24.0-44.0); MEAN CORPUSCULAR HEMOGLOBIN 25.8 pg (27.0-33.0); MEAN CORPUSCULAR HGB CONC 33.2 g/dl (32.0-36.5); MEAN CORPUSCULAR VOLUME 77.6 fl (80.0-96.0); NEUTROPHILS # 14.2 10^3/uL (1.5-8.5); RED BLOOD COUNT 3.92 10^6/uL (4.30-6.10); WHITE BLOOD COUNT 16.1 10^3/uL (4.0-10.0)
[2020-11-14 11:09] LABS: PLATELET COUNT, AUTOMATED 564 10^3/uL (150-450)
[2020-11-14 11:28] LABS: BLOOD UREA NITROGEN 12 MG/DL (7-18); CALCIUM LEVEL 7.9 MG/DL (8.5-10.1); CARBON DIOXIDE LEVEL 21 MEQ/L (21-32); CHLORIDE LEVEL 117 MEQ/L (98-107); CREATININE FOR GFR 0.89 MG/DL (0.70-1.30); GLOMERULAR FILTRATION RATE > 60.0 (>60); GLUCOSE, FASTING 184 MG/DL (70-100); POTASSIUM SERUM 3.7 MEQ/L (3.5-5.1); SODIUM LEVEL 145 MEQ/L (136-145)
[2020-11-14] MEDS ORDERED: POTASSIUM CHLORIDE 10% LIQ 20 MEQ/15 ML UDC PO ONE (12:00)
[2020-11-14] MEDS: HumaLOG INSULIN (NovoLOG) PER UNIT SC SCH ×3 (13:04→20:25)
--- NOTE | 2020-11-14 18:38 | IPNPDOC ---
Subjective Date Seen The patient was seen on 11/14/20. Subjective Chief Complaint/HPI Mr. Jane is a 45 year old male with DM type 2 who presents with dyspnea and found to have DKA. Overnight has gap was closed. This morning, he was nauseous. He vomited once. Despite this he felt like he could eat. We started him on Levemir 30 units and discontinued insulin drip an hour later. Patient was put on a clear liquid diet. This evening, he was advance to carbohydrate consistent. Otherwise, his blood cultures returned positive for gram-positive cocci in clusters 2. Patient was started on vancomycin. Blood culture repeated. Objective Physical Examination General Exam: Positive: Alert, Cooperative Eye Exam: Positive: Sclera icteric Neck Exam: Positive: Supple Chest Exam: Positive: Clear to auscultation Heart Exam: Positive: Rate Normal, Regular Rhythm Abdomen Exam: Positive: Normal bowel sounds Extremity Exam: Negative: Edema Skin Exam: Negative: Nl turgor and temperature Neuro Exam: Positive: Normal Speech Psych Exam: Positive: Mental status NL, Mood NL Assessment /Plan Assessment Mr. Jane is a 45 year old male with DM type 2 who presents with dyspnea and found to have DKA. He is non-compliant diabetic. His HbA1c is >14. He also does not have a PCP. We will able to close the gap and basal bolus insulin was started. Otherwise, patient's blood cultures were positive for gram-positive cosign clusters. Patient started on vancomycin. Blood culture was repeated. Plan/VTE VTE Prophylaxis Ordered?: Yes Plan 1. DKA -ABG pH 6.894 -Bicarb 4, Gap 32 (high anion gap metabolic acidosis) -K 5.8, glucose 597 -Insulin drip per protocol, IVF, bicarb drip. Resolved and discontinued -Patient now on basal bolus insulin -Levemir 30u qHS -Sliding scale insulin -Carbohydrate consistent diet 2. Non-compliance -Patient will need a PCP prior to discharge 3. Gram positive bacteremia -Pending C&S -Vancomycin ordered -Repeat blood culture ordered 4. DVT ppx -Heparin Disposition: Pending blood culture results VS, I&O, 24H, Fishbone Vital Signs/I&O Vital Signs Date Time Temp Pulse Resp B/P (MAP) Pulse Ox O2 Delivery O2 Flow Rate FiO2 11/14/20 14:00 98.1 96 18 133/76 (95) 96 Room Air I&O- Last 24 Hours up to 6 AM 11/14/20 06:00 Intake Total 4479.66 ml Output Total 3005 ml Balance 1474.66 ml Laboratory Data 24H LABS Laboratory Tests 2 11/13/20 18:58: Bedside Glucose (Misc Panel) 297H 11/13/20 20:02: Bedside Glucose (Misc Panel) 248H 11/13/20 20:35: Anion Gap 18H, Glomerular Filtration Rate > 60.0, Calcium Level 8.5 11/13/20 21:05: Bedside Glucose (Misc Panel) 206H 11/13/20 22:07: Bedside Glucose (Misc Panel) 222H 11/13/20 22:42: Anion Gap 14, Glomerular Filtration Rate > 60.0, Calcium Level 8.4L 11/13/20 22:55: Bedside Glucose (Misc Panel) 160H 11/13/20 23:40: Blood Gas Bicarbonate Standard 16.7L, Arterial Blood pH 7.335L, Arterial Blood Partial Pressure CO2 28.9L, Arterial Blood Partial Pressure O2 139.5H, Arterial Blood Total CO2 16.0L, Arterial Blood HCO3 15.1L, Arterial Blood Base Excess - 9.6L, Arterial Blood Oxygen Saturation 98.7 11/13/20 23:52: Bedside Glucose (Misc Panel) 139H 11/14/20 00:29: Anion Gap 12, Glomerular Filtration Rate > 60.0, Calcium Level 9.0 11/14/20 01:07: Bedside Glucose (Misc Panel) 203H 11/14/20 02:06: Bedside Glucose (Misc Panel) 225H 11/14/20 02:31: Anion Gap 10, Glomerular Filtration Rate > 60.0, Calcium Level 7.6#L 11/14/20 02:58: Bedside Glucose (Misc Panel) 228H 11/14/20 04:06: Anion Gap 8, Glomerular Filtration Rate > 60.0, Calcium Level 7.6L 11/14/20 04:13: Bedside Glucose (Misc Panel) 214H 11/14/20 04:58: Bedside Glucose (Misc Panel) 229H 11/14/20 05:53: Bedside Glucose (Misc Panel) 220H 11/14/20 06:42: Anion Gap 8, Glomerular Filtration Rate > 60.0, Calcium Level 8.2L 11/14/20 07:02: Bedside Glucose (Misc Panel) 200H 11/14/20 07:59: Bedside Glucose (Misc Panel) 192H 11/14/20 09:31: Bedside Glucose (Misc Panel) 176H 11/14/20 10:55: Immature Granulocyte % (Auto) 1.4, Neutrophils (%) (Auto) 88.0H, Lymphocytes (%) (Auto) 4.4L, Monocytes (%) (Auto) 6.0, Eosinophils (%) (Auto) 0.1, Basophils (%) (Auto) 0.1, Neutrophils # (Auto) 14.2H, Lymphocytes # (Auto) 0.7L, Monocytes # (Auto) 1.0H, Eosinophils # (Auto) 0.0, Basophils # (Auto) 0.0, Nucleated Red Blood Cells % (auto) 0.0, Anion Gap 7L, Glomerular Filtration Rate > 60.0, Calcium Level 7.9L 11/14/20 12:46: Bedside Glucose (Misc Panel) 210H 11/14/20 17:41: Bedside Glucose (Misc Panel) 160H CBC/BMP Laboratory Tests 11/13/20 20:35 11/13/20 22:42 11/14/20 00:29 11/14/20 02:31 11/14/20 04:06 11/14/20 06:42 11/14/20 10:55 Microbiology Microbiology 11/14/20 Blood Culture, Received Pending 11/13/20 Blood Culture - Preliminary, Resulted 11/13/20 Blood Culture - Preliminary, Resulted SIMONE CARSON DO Nov 14, 2020 18:38
[2020-11-14] MEDS: VANCOMYCIN HCL 1,000 MG, VIAL MATE ADAPTER 1 EACH in NS 250 ML IV SCH (20:24)
[2020-11-15 06:00] VITALS: BP 134/76
[2020-11-15 08:28] LABS: HEMATOCRIT 30.5 % (42.0-52.0); HEMOGLOBIN 10.1 g/dl (13.5-17.5); MEAN CORPUSCULAR HEMOGLOBIN 25.4 pg (27.0-33.0); MEAN CORPUSCULAR HGB CONC 33.1 g/dl (32.0-36.5); MEAN CORPUSCULAR VOLUME 76.6 fl (80.0-96.0); PLATELET COUNT, AUTOMATED 502 10^3/uL (150-450); RED BLOOD COUNT 3.98 10^6/uL (4.30-6.10); WHITE BLOOD COUNT 12.3 10^3/uL (4.0-10.0)
[2020-11-15] MEDS: HumaLOG INSULIN (NovoLOG) PER UNIT SC SCH ×5 (08:45→21:57)
[2020-11-15] MEDS: LEVEMIR (INSULIN DETEMIR) 1 UNITS/0.01ML SC SCH (08:46)
[2020-11-15] MEDS: VANCOMYCIN HCL 1,000 MG, VIAL MATE ADAPTER 1 EACH in NS 250 ML IV SCH ×2 (08:46→21:28)
[2020-11-15] MEDS: HEPARIN SOD (PORCINE) 5000UNITS/ML 1ML VIAL/SYRINGE SC SCH ×2 (08:46→21:27)
[2020-11-15 08:52] LABS: BLOOD UREA NITROGEN 9 MG/DL (7-18); CALCIUM LEVEL 7.9 MG/DL (8.5-10.1); CARBON DIOXIDE LEVEL 19 MEQ/L (21-32); CHLORIDE LEVEL 111 MEQ/L (98-107); GLOMERULAR FILTRATION RATE > 60.0 (>60); GLUCOSE, FASTING 222 MG/DL (70-100); POTASSIUM SERUM 3.5 MEQ/L (3.5-5.1); SODIUM LEVEL 141 MEQ/L (136-145)
[2020-11-15] MEDS ORDERED: MIRALAX *UNIT DOSE* 17GM PACKET PO PRN (10:10)
[2020-11-15] MEDS: DOCUSATE SODIUM 100MG CAPSULE PO SCH ×2 (10:27→21:27)
[2020-11-15] MEDS ORDERED: POTASSIUM CHLORIDE 10% LIQ 20 MEQ/15 ML UDC PO ONE (12:55)
--- NOTE | 2020-11-15 12:58 | IPNPDOC ---
Subjective Date Seen The patient was seen on 11/15/20. Subjective Chief Complaint/HPI Mr. Jane is a 45 year old male with DM type 2 who presents with dyspnea and found to have DKA. This morning, he denies any chest pain or dyspnea. Culture results returned positive for Staph aureus, pending sensitivities. Will order echocardiogram for tomorrow. Patient denies any rashes or IV drug use. He does report poor oral health. Possible source for Staph aureus bacteremia. Objective Physical Examination General Exam: Positive: Alert, Cooperative Eye Exam: Positive: Sclera icteric Neck Exam: Positive: Supple Chest Exam: Positive: Clear to auscultation Heart Exam: Positive: Rate Normal, Regular Rhythm Abdomen Exam: Positive: Normal bowel sounds Extremity Exam: Negative: Edema Skin Exam: Negative: Nl turgor and temperature Neuro Exam: Positive: Normal Speech Psych Exam: Positive: Mental status NL, Mood NL Assessment /Plan Assessment Mr. Jane is a 45 year old male with DM type 2 who presents with dyspnea and found to have DKA. He is non-compliant diabetic. His HbA1c is >14. He also does not have a PCP. DKA now resoled. We closed the gap and basal bolus insulin was started. Otherwise, patient's blood cultures grew Staph aureus. Blood cultures repeated and patient was started on vancomycin. Echocardiogram ordered. Patient denies rashes or IV drug use, but does report poor oral hygiene/health. Possible source for Staph aureus bacteremia. Plan/VTE VTE Prophylaxis Ordered?: Yes Plan 1. DKA -ABG pH 6.894 -Bicarb 4, Gap 32 (high anion gap metabolic acidosis) -K 5.8, glucose 597 -Insulin drip per protocol, IVF, bicarb drip. Resolved and discontinued -Patient now on basal - bolus insulin -Levemir 20u daily -Sliding scale insulin -Carbohydrate consistent diet 2. Non-compliance -Patient will need a PCP prior to discharge 3. Staph aureus bacteremia -Pending sensitivities -Vancomycin ordered -Repeat blood culture ordered Patient denies IV drug abuse or rashes. Patient does report poor oral health/hygiene which may be the source Echocardiogram ordered 4. DVT ppx -Heparin Disposition: Pending echocardiogram and blood culture sensitivities VS, I&O, 24H, Fishbone Vital Signs/I&O Vital Signs Date Time Temp Pulse Resp B/P (MAP) Pulse Ox O2 Delivery O2 Flow Rate FiO2 11/15/20 06:00 98.3 97 18 134/76 (95) 96 Room Air I&O- Last 24 Hours up to 6 AM 11/15/20 06:00 Intake Total 2755 ml Output Total 770 ml Balance 1985 ml Laboratory Data 24H LABS Laboratory Tests 2 11/14/20 17:41: Bedside Glucose (Misc Panel) 160H 11/14/20 19:43: Bedside Glucose (Misc Panel) 154H 11/15/20 07:34: Bedside Glucose (Misc Panel) 213H 11/15/20 08:20: Nucleated Red Blood Cells % (auto) 0.0, Anion Gap 11, Glomerular Filtration Rate > 60.0, Calcium Level 7.9L 11/15/20 11:52: Bedside Glucose (Misc Panel) 215H CBC/BMP Laboratory Tests 11/15/20 08:20 Microbiology Microbiology 11/14/20 Blood Culture, Received Pending 11/13/20 Blood Culture - Preliminary, Resulted Staphylococcus Aureus 11/13/20 Blood Culture - Preliminary, Resulted Staphylococcus Aureus SIMONE CARSON DO Nov 15, 2020 12:58
[2020-11-15 13:36] LABS: ERYTHROCYTE SEDIMENTATION RATE 103 mm/hr (0-15)
[2020-11-15 14:00] VITALS: BP 154/92
[2020-11-15 20:26] VITALS: BP 132/80
[2020-11-16] MEDS ORDERED: VANCOMYCIN HCL 750 MG, VIAL MATE ADAPTER 1 EACH in NS 250 ML IV SCH (05:00)
[2020-11-16 06:04] VITALS: BP 154/91
[2020-11-16 06:28] LABS: HEMATOCRIT 29.4 % (42.0-52.0); HEMOGLOBIN 9.5 g/dl (13.5-17.5); MEAN CORPUSCULAR HEMOGLOBIN 25.1 pg (27.0-33.0); MEAN CORPUSCULAR HGB CONC 32.3 g/dl (32.0-36.5); MEAN CORPUSCULAR VOLUME 77.6 fl (80.0-96.0); PLATELET COUNT, AUTOMATED 484 10^3/uL (150-450); RED BLOOD COUNT 3.79 10^6/uL (4.30-6.10); WHITE BLOOD COUNT 10.6 10^3/uL (4.0-10.0)
[2020-11-16 06:47] LABS: BLOOD UREA NITROGEN 10 MG/DL (7-18); CALCIUM LEVEL 7.7 MG/DL (8.5-10.1); CARBON DIOXIDE LEVEL 18 MEQ/L (21-32); CHLORIDE LEVEL 106 MEQ/L (98-107); CREATININE FOR GFR 0.86 MG/DL (0.70-1.30); GLOMERULAR FILTRATION RATE > 60.0 (>60); GLUCOSE, FASTING 326 MG/DL (70-100); POTASSIUM SERUM 3.7 MEQ/L (3.5-5.1); SODIUM LEVEL 139 MEQ/L (136-145)
[2020-11-16] MEDS: DOCUSATE SODIUM 100MG CAPSULE PO SCH ×2 (08:34→20:15)
[2020-11-16] MEDS: LEVEMIR (INSULIN DETEMIR) 1 UNITS/0.01ML SC SCH ×2 (08:34→21:00)
[2020-11-16] MEDS: HEPARIN SOD (PORCINE) 5000UNITS/ML 1ML VIAL/SYRINGE SC SCH ×2 (08:35→20:16)
[2020-11-16] MEDS: HumaLOG INSULIN (NovoLOG) PER UNIT SC SCH ×4 (08:35→20:16)
[2020-11-16] MEDS: ceFAZolin SOD 2 GM in IV 1 EA IV SCH ×2 (10:10→17:07)
[2020-11-16] MEDS ORDERED: ISOVUE-370 76% 100ML VIAL As Ordered ONE (12:14)
[2020-11-16] MEDS: GASTROGRAFIN SOLUTION 30ML PO SCH ×2 (13:05→13:49)
[2020-11-16 14:00] VITALS: BP 144/86
--- NOTE | 2020-11-16 17:39 | CR ---
CONSULTATION DATE: 11/16/2020 REFERRING PHYSICIAN: Hospitalist. REASON FOR CONSULTATION: Evaluation of Staphylococcus aureus bacteremia. HISTORY OF PRESENT ILLNESS: Mr. Jane is a 45-year-old gentleman with a history of type 2 diabetes who has not been on medication for over a year. He was brought in by his significant other for unresponsiveness and concern of rolling his eyes. The patient was found to be in DKA. In the emergency room, he was not verbal. He was febrile with a white count of 29,000. His [id number], Mis Jane, was the one who gave the history, but at this point the patient is alert, oriented x3, and is able to give me a history; stating that a couple of days before admission, he was having trouble with urination, he was incontinent having urgency and frequency, no dysuria or flank pain. He came to the emergency room and was told he had uncontrolled diabetes and discharged. The next day, he was found to be in DKA. He currently states he still has some urgency, but this improved. He has a history of nocturia usually about three times a night, but it had increased to six times a night. He denied any chest pain. He had some shortness of breath with exertion. No nausea, vomiting, or diarrhea. He complains of perianal pain that just started with no swelling in the area. On admission, his ABG pH was 6.89, bicarb 4 with anion gap of 32. The patient was started on insulin drip and given 1 liter of IV fluid in the ER with 2 liters of bicarb drip. He was started on IV vancomycin and Zosyn and then switched to cefazolin 2 grams IV q. 8 hours since 11/16. MEDICATIONS: 1. Cefazolin 2 grams IV q. 8 hours. 2. MiraLAX one packet daily p.r.n. 3. Colace 100 mg p.o. b.i.d. 4. Insulin 20 units subcutaneously daily. 5. Reglan 10 mg IV q. 6 p.r.n. 6. Heparin 5000 units subcutaneously q. 12 hours. 7. Tylenol p.r.n. ALLERGIES: No known drug allergies. LABORATORY DATA: Sodium 139, potassium 3.7, chloride 106, bicarb 18, BUN 10, creatinine 0.86, glucose 326, calcium 7.7. Creatinine on admission was 1.47. White count 10.6, hemoglobin 9.5, hematocrit 29.4, MCV 77.6, platelets 484,000 down from 862,000, and ESR 103. Beta-hydroxybutyrate was more than 46. Alcohol level 0.004. Vancomycin trough 12.6. Influenza A and B, RSV, SARS-coV-2 was negative. IMAGING DATA: CT abdomen and pelvis is pending. PAST MEDICAL HISTORY: 1. Vpx-cizecwt-ucbwarunv diabetes. He used to be on metformin. Ran out of his insurance and medications over a year ago. Has not seen a doctor. 2. Hypertension. 3. Hyperlipidemia. 4. Lumbar fracture. Had surgery with rods in place. 5. Narcotic misuse. PAST SURGICAL HISTORY: 1. Back surgery done by Dr. Swartz in [place] in 2004. 2. Right wrist surgery for a wrist fracture done in June 2020. FAMILY HISTORY: Father of renal failure and heart disease. Mother is alive. SOCIAL HISTORY: He smokes. Social alcohol use. He has five kids. He has a girlfriend who has two kids with him. REVIEW OF SYSTEMS: He currently has no nausea, vomiting, or diarrhea. He does have some perianal pain. No upper or lower extremity weakness. He has chronic back pain, which is unchanged. PHYSICAL EXAMINATION: VITAL SIGNS: Temperature was 100.8 on 11/14 and he has been afebrile since. Currently temperature is 99, pulse 86, respirations 16, blood pressure 144/86, O2 saturation 98% on room air. HEENT: Oropharynx with very poor dentition. No sinus tenderness. No thrush. HEART: Normal S1, S2. No murmurs, rubs or gallops. Slightly tachycardic. LUNGS: Clear. No wheezing, rales, or rhonchi. ABDOMEN: Soft and nontender. No hepatosplenomegaly. BACK: No CVA or lumbosacral tenderness. EXTREMITIES: No clubbing, cyanosis, or edema. Dry heels. No open lesions. +2 dorsalis pedis pulses. NEUROLOGIC: Motor strength normal upper and lower extremities. IMPRESSION: This is a 45-year-old gentleman who was admitted with diabetic ketoacidosis (DKA), severe sepsis, Staph aureus bacteremia. He has a positive urine culture with urinary symptoms as well, including frequency, urgency, and nocturia. The source of his Staph aureus bacteremia could be of urinary origin, but also other sources should be ruled out including endocarditis and infection of his hardware in his back; although he does not complain of significant back pain. His urinalysis had 22 white cells and urine culture had methicillin-sensitive Staphylococcus aureus (MSSA) resistant to clindamycin, erythromycin, and penicillin G with more than 100,000 colony-forming units. PLAN: Echocardiogram has already been done, results are not available. Recommended CT abdomen and pelvis to rule out psoas abscess, perinephric abscess, or other source of infection. Continue IV cefazolin 2 grams every eight hours. He will need a minimum of two weeks of IV antibiotics. We will decide whether he will need a transesophageal echocardiogram depending on findings of CT abdomen and pelvis.
--- NOTE | 2020-11-16 20:24 | ECHO ---
ECHOCARDIOGRAM DATE OF PROCEDURE: 11/16/2020 Age: 63 Gender: Male Height: 162 cm Weight: 71 kg REFERRING PHYSICIAN: Alexys Chu DO INDICATION: Staphylococcus aureus bacteremia. MEASUREMENTS: IVS 1.0 cm LV 4.3 cm LVPW 1.0 cm LA 3.6 cm Aorta 3.2 cm Mitral E wave velocity 65 cm/s Mitral A wave 56 cm/s E prime septal 7.9 cm/s E prime lateral 11.9 cm/s FINDINGS: This study is of good technical quality. Underlying sinus tachycardia with ventricular rate in the low 100s. Normal LV size with preserved LV systolic function, estimated EF around 60%. Normal RV size and systolic function. Both atria appear normal. Aortic, mitral, and tricuspid valves were all seen and all appear normal. No vegetations are visualized. Pulmonic valve was not well seen. No pericardial effusion is noted. Inferior vena cava has normal size. Aortic root, aortic arch, and visualized segment of the abdominal aorta all appear normal. Doppler interrogation reveals competent aortic valve. There is trace mitral and trace tricuspid insufficiency. Mitral inflow pattern and tissue Doppler imaging of the mitral annulus reveal likely normal diastolic function even though septal tissue Doppler velocity is mildly reduced. CONCLUSIONS: 1. Study is of acceptable technical quality, underlying sinus tachycardia. 2. Normal LV size with preserved LV systolic and diastolic function. 3. No significant valvular disease (pulmonic valve was not well seen). 4. Likely normal central venous pressure. 5. Unable to estimate pulmonary artery pressure. 6. No vegetation was visualized.
--- NOTE | 2020-11-16 20:56 | ECGEPIP ---
[facility] [place] Test Date: 2020-11-15 Pat Name: ARELIS COTTER Department: Room: [place] [address] Gender: Male [employer]: teressa : [id number] Requested By: SIMONE Alexander Order Number: [id number] Reading MD: Fabian Garcia Measurements Intervals [place] Rate: 114 P: 56 SD: 148 QRS: 22 QRSD: 66 T: 28 QT: 312 QTc: 430 Interpretive Statements Sinus tachycardia Similar to 11/13/20 Electronically Signed on 11-16-2020 20:56:38 EDT by Fabian Garcia
[2020-11-16] MEDS: TAMSULOSIN 0.4 MG CAP PO SCH (21:00)
--- NOTE | 2020-11-16 21:00 | IPNPDOC ---
Subjective Date Seen The patient was seen on 11/16/20. Subjective Chief Complaint/HPI Mr. Jane is a 45 year old male with DM type 2 who presents with dyspnea and found to have DKA. This morning, he denies chest pain or dyspnea, but complained of dribbling urine. Sometimes, he cannot hold long enough to make it to the bathroom. Will order tamsulosin. Otherwise, I consulted ID and discussed the case. Patient Urine culture prior to admission also grew MSSA. ID recommended CT abd/pelvis for intra-abdominal source. Objective Physical Examination General Exam: Positive: Alert, Cooperative Eye Exam: Positive: Sclera icteric Neck Exam: Positive: Supple Chest Exam: Positive: Clear to auscultation Heart Exam: Positive: Rate Normal, Regular Rhythm Abdomen Exam: Positive: Normal bowel sounds Extremity Exam: Negative: Edema Skin Exam: Negative: Nl turgor and temperature Neuro Exam: Positive: Normal Speech Psych Exam: Positive: Mental status NL, Mood NL Assessment /Plan Assessment Mr. Jane is a 45 year old male with DM type 2 who presents with dyspnea and found to have DKA. He is non-compliant diabetic. His HbA1c is >14. He also does not have a PCP. DKA now resoled. We closed the gap and basal bolus insulin was started. Initially started with 20u levmir Otherwise, patient's blood cultures grew MSSA. Repeat blood culture is negative to date. Vancomycin switched to Cefazolin. Echocardiogram ordered. Patient denies rashes or IV drug use, but does report poor oral hygiene/health. Otherwise, consulted ID, Dr. Briceno, recommendations appreciated. Patient's urine culture day prior to admission grew MSSA. Recommended CT abd/pelvis to look for intra-abdominal source. Plan/VTE VTE Prophylaxis Ordered?: Yes Plan 1. DKA -ABG pH 6.894 -Bicarb 4, Gap 32 (high anion gap metabolic acidosis) -K 5.8, glucose 597 -Insulin drip per protocol, IVF, bicarb drip. Resolved and discontinued -Patient now on basal - bolus insulin -Levemir 20u daily, added Levemir 10u qHS -Sliding scale insulin -Carbohydrate consistent diet 2. Non-compliance -Patient will need a PCP prior to discharge 3. MSSA bacteremia -Cefazolin day 2 -Repeat blood culture NTD Patient denies IV drug abuse or rashes. Patient does report poor oral health/hygiene. -ID consulted, recommendations appreciated -MSSA was also seen in urine culture the day prior. Ordered CT abd/pelvis to look from intra-abdominal cause Echocardiogram ordered 4. LUTS -Patient has dribbling and has trouble making it in time -Ordered for tamsulosin 5. DVT ppx -Heparin Disposition: Pending echocardiogram and CT abd/pelvis results. ID following, recommendations appreciated. VS, I&O, 24H, Fishbone Vital Signs/I&O Vital Signs Date Time Temp Pulse Resp B/P (MAP) Pulse Ox O2 Delivery O2 Flow Rate FiO2 11/16/20 14:00 99.0 86 16 144/86 (105) 98 Room Air I&O- Last 24 Hours up to 6 AM 11/16/20 06:00 Intake Total 2040 ml Balance 2040 ml Laboratory Data 24H LABS Laboratory Tests 2 11/16/20 05:36: Nucleated Red Blood Cells % (auto) 0.0, Anion Gap 15, Glomerular Filtration Rate > 60.0, Calcium Level 7.7L 11/16/20 11:41: Bedside Glucose (Misc Panel) 371H 11/16/20 16:38: Bedside Glucose (Misc Panel) 283H 11/16/20 20:11: Bedside Glucose (Misc Panel) 310H CBC/BMP Laboratory Tests 11/16/20 05:36 Microbiology Microbiology 11/14/20 Blood Culture - Preliminary, Resulted No Growth after 48 hours. All Specime... 11/13/20 Blood Culture - Final, Complete Staphylococcus Aureus 11/13/20 Blood Culture - Final, Complete Staphylococcus Aureus SIMONE CARSON DO Nov 16, 2020 21:00
--- NOTE | 2020-11-16 21:27 | REP ---
INDICATION: MSSA UTI and bacteremia, Abscess or intra-abdominal source?. COMPARISON: None TECHNIQUE: Axial contrast-enhanced images from the lung bases to the pubic symphysis using 100 cc Isovue 370 intravenous contrast material. Coronal and sagittal reformations obtained.. This CT examination was performed using the following dose reduction techniques: Automated exposure control, adjustment of mA and/or kv according to the patient's size, and the use of iterative reconstruction technique. FINDINGS: Liver, spleen, pancreas, and bilateral adrenal glands are normal in appearance. The kidneys are enlarged and have a subtle washed out appearance. The gallbladder demonstrates mild pericholecystic fluid/wall thickening without obvious gallstones or biliary ductal dilatation. There also appears to be inflammatory stranding throughout the entire mesentery as well as small amount of free fluid along the right pericolic gutter into the pelvis. These findings are nonspecific. There is no abscess or drainable collection. Differential diagnosis may include pyelonephritis, underlying sepsis, and possible acalculous cholecystitis. The enteric system is grossly normal and without evidence for obstruction or free air to suggest perforation and no focal inflammatory process identified. Pelvis demonstrates normal bladder and a significantly enlarged heterogeneous prostate gland with irregular cystic changes at the base of the prostate. Underlying prostatitis cannot be excluded. Scattered mesenteric and retroperitoneal lymph nodes appear mildly prominent and reactive measuring up to 2 cm. Abdominal aorta and vasculature appear normal. Musculoskeletal structures demonstrate laminectomy and posterior fixation at L5-S1. No obvious acute osseous abnormality noted. IMPRESSION: Small amount of ascites along with inflammatory stranding throughout the mesentery and scattered reactive lymph nodes. The prostate gland is heterogeneous with cystic changes at the base of the prostate gland and surrounding inflammatory changes possibly reflecting prostatitis. Of the possible sources include pyelonephritis as well as a calculus cholecystitis. <Electronically signed by Linwood Tomlinson > 11/16/20 [id number]
[2020-11-16 21:49] VITALS: BP 139/83
[2020-11-17] MEDS: ceFAZolin SOD 2 GM in IV 1 EA IV SCH ×3 (01:30→17:08)
[2020-11-17 06:00] VITALS: BP 142/83
[2020-11-17 06:39] LABS: HEMATOCRIT 28.7 % (42.0-52.0); HEMOGLOBIN 9.4 g/dl (13.5-17.5); MEAN CORPUSCULAR HEMOGLOBIN 25.4 pg (27.0-33.0); MEAN CORPUSCULAR HGB CONC 32.8 g/dl (32.0-36.5); MEAN CORPUSCULAR VOLUME 77.6 fl (80.0-96.0); PLATELET COUNT, AUTOMATED 476 10^3/uL (150-450); WHITE BLOOD COUNT 10.5 10^3/uL (4.0-10.0)
[2020-11-17 07:00] LABS: BLOOD UREA NITROGEN 11 MG/DL (7-18); CALCIUM LEVEL 7.7 MG/DL (8.5-10.1); CARBON DIOXIDE LEVEL 26 MEQ/L (21-32); CHLORIDE LEVEL 104 MEQ/L (98-107); CREATININE FOR GFR 0.89 MG/DL (0.70-1.30); GLOMERULAR FILTRATION RATE > 60.0 (>60); GLUCOSE, FASTING 281 MG/DL (70-100); POTASSIUM SERUM 3.6 MEQ/L (3.5-5.1); SODIUM LEVEL 139 MEQ/L (136-145)
[2020-11-17] MEDS: HumaLOG INSULIN (NovoLOG) PER UNIT SC SCH ×4 (09:20→21:00)
[2020-11-17] MEDS: LEVEMIR (INSULIN DETEMIR) 1 UNITS/0.01ML SC SCH ×2 (09:20→21:59)
[2020-11-17] MEDS: DOCUSATE SODIUM 100MG CAPSULE PO SCH ×2 (09:20→21:58)
[2020-11-17] MEDS: HEPARIN SOD (PORCINE) 5000UNITS/ML 1ML VIAL/SYRINGE SC SCH ×2 (09:21→21:58)
[2020-11-17 10:08] LABS: ALBUMIN 1.7 GM/DL (3.2-5.2); ALT/SGPT < 6 U/L (12-78); BILIRUBIN,DIRECT < 0.1 MG/DL (0.0-0.2); BILIRUBIN,TOTAL 0.2 MG/DL (0.2-1.0); TOTAL PROTEIN 5.8 GM/DL (6.4-8.2)
[2020-11-17 14:00] VITALS: BP 130/79
--- NOTE | 2020-11-17 20:52 | IPNPDOC ---
Date Seen The patient was seen on 11/17/20. Progress Note SUBJECTIVE: Seen and examined at bedside. Continues to have urinary dribbling and chemically to the bathroom. Denies fevers, chills, nausea, vomiting, diarrhea. OBJECTIVE PHYSICAL EXAMINATION: VITAL SIGNS: please see below General: NAD, comfortable HEENT: PERRLA, EOMI, sclerae clear Neck: supple, normal ROM, no JVD Respiratory: lungs CTAB, no wheeze, no rales, no crackles CVS: RRR, normal S1, S2, no murmurs Abdo: soft, no masses, no hepatosplenomegaly, BS+, no rebound tenderness Extremities: no edema, pulses 2+ MSK: no joint deformities, normal ROM Neuro: no focal neuro deficits, moving all 4 extremities, CN2-12 intact. Strength 5/5 in all 4 extremities. No nystagmus. Psych: calm, cooperative, AAO x 3 LABORATORY DATA, IMAGING STUDIES, MICROBIOLOGY: Please see below. Echocardiogram 11/16/20: 1. Study is of acceptable technical quality, underlying sinus tachycardia. 2. Normal LV size with preserved LV systolic and diastolic function. 3. No significant valvular disease (pulmonic valve was not well seen). 4. Likely normal central venous pressure. 5. Unable to estimate pulmonary artery pressure. 6. No vegetation was visualized. DVT prophylaxis ordered?: Heparin ASSESSMENT AND PLAN: 1. DKA -ABG pH 6.894 -Bicarb 4, Gap 32 (high anion gap metabolic acidosis) -K 5.8, glucose 597 -Insulin drip per protocol, IVF, bicarb drip. Resolved and discontinued -Patient now on basal - bolus insulin -Levemir 20u daily, added Levemir 10u qHS -Sliding scale insulin -Carbohydrate consistent diet 2. Non-compliance -Patient will need a PCP prior to discharge 3. MSSA bacteremia -Cefazolin day 3 -Repeat blood culture NTD Patient denies IV drug abuse or rashes. Patient does report poor oral health/hygiene. -ID consulted, recommendations appreciated -MSSA was also seen in urine culture the day prior. Ordered CT abd/pelvis to look from intra-abdominal cause Echocardiogram shows no vegetations - d/w Dr. Briceno. Suspect prostatitis. - ordered placed for PICC line insertion. Will consider 2 weeks of cefazolin for MSSA bactereami 4. LUTS -Patient has dribbling and has trouble making it in time -Ordered for tamsulosin 5. DVT ppx -Heparin VS, I&O, 24H, Fishbone Vital Signs/I&O Vital Signs Date Time Temp Pulse Resp B/P (MAP) Pulse Ox O2 Delivery O2 Flow Rate FiO2 11/17/20 14:00 98.2 97 18 130/79 (96) 96 Room Air I&O- Last 24 Hours up to 6 AM 11/17/20 06:00 Intake Total 5210 ml Output Total 3700 ml Balance 1510 ml Laboratory Data 24H LABS Laboratory Tests 2 11/17/20 06:00: Nucleated Red Blood Cells % (auto) 0.0, Anion Gap 9, Glomerular Filtration Rate > 60.0, Calcium Level 7.7L, Total Bilirubin 0.2, Direct Bilirubin < 0.1, Aspartate Amino Transf (AST/SGOT) 11, Alanine Aminotransferase (ALT/SGPT) < 6L, Alkaline Phosphatase 154H, Total Protein 5.8L, Albumin 1.7L, Albumin/Globulin Ratio 0.4 11/17/20 11:30: Bedside Glucose (Misc Panel) 289H 11/17/20 16:40: Bedside Glucose (Misc Panel) 270H CBC/BMP Laboratory Tests 11/17/20 06:00 Microbiology Microbiology 11/14/20 Blood Culture - Preliminary, Resulted No Growth after 72 hours. All specime... 11/13/20 Blood Culture - Final, Complete Staphylococcus Aureus 11/13/20 Blood Culture - Final, Complete Staphylococcus Aureus CHING BOWLES MD Nov 17, 2020 20:52
[2020-11-17] MEDS: TAMSULOSIN 0.4 MG CAP PO SCH ×2 (21:00→21:58)
[2020-11-17 22:00] VITALS: BP 132/80
[2020-11-18] MEDS: ceFAZolin SOD 2 GM in IV 1 EA IV SCH ×3 (02:33→17:12)
[2020-11-18 06:00] VITALS: BP 135/82
[2020-11-18 06:55] LABS: HEMATOCRIT 28.3 % (42.0-52.0); HEMOGLOBIN 9.1 g/dl (13.5-17.5); MEAN CORPUSCULAR HEMOGLOBIN 24.7 pg (27.0-33.0); MEAN CORPUSCULAR HGB CONC 32.2 g/dl (32.0-36.5); MEAN CORPUSCULAR VOLUME 76.7 fl (80.0-96.0); PLATELET COUNT, AUTOMATED 513 10^3/uL (150-450); RED BLOOD COUNT 3.69 10^6/uL (4.30-6.10); WHITE BLOOD COUNT 8.2 10^3/uL (4.0-10.0)
[2020-11-18 07:13] LABS: BLOOD UREA NITROGEN 10 MG/DL (7-18); CALCIUM LEVEL 7.5 MG/DL (8.5-10.1); CARBON DIOXIDE LEVEL 27 MEQ/L (21-32); CHLORIDE LEVEL 107 MEQ/L (98-107); CREATININE FOR GFR 0.84 MG/DL (0.70-1.30); GLOMERULAR FILTRATION RATE > 60.0 (>60); GLUCOSE, FASTING 243 MG/DL (70-100); POTASSIUM SERUM 3.8 MEQ/L (3.5-5.1); SODIUM LEVEL 142 MEQ/L (136-145)
[2020-11-18] MEDS ORDERED: LIDOCAINE 1% MDV 20ML VIAL As Ordered ONE (07:26)
[2020-11-18] MEDS: HEPARIN SOD (PORCINE) 5000UNITS/ML 1ML VIAL/SYRINGE SC SCH ×2 (09:00→21:21)
[2020-11-18] MEDS: DOCUSATE SODIUM 100MG CAPSULE PO SCH ×2 (09:05→21:21)
[2020-11-18] MEDS: HumaLOG INSULIN (NovoLOG) PER UNIT SC SCH ×4 (09:05→21:00)
[2020-11-18] MEDS: LEVEMIR (INSULIN DETEMIR) 1 UNITS/0.01ML SC SCH (09:06)
--- NOTE | 2020-11-18 11:52 | IPN ---
PROGRESS NOTE DATE: 11/17/2020 SUBJECTIVE: Hari seems to be doing better. He still has problems with urgency and having difficulty urinating where he has to push to be able to urinate. He has no dysuria, no nausea or vomiting. His appetite is good. He is on IV cefazolin 2 gm every 8 hours. No chest pain or shortness of breath. He was concerned that his feet were very cold, so his significant other, Kristine, brought him socks and his feet feel much better. LABORATORY DATA: White count 10.5, hemoglobin 9.4, hematocrit 28.7, platelets 476. Erythrocyte sedimentation rate (ESR) 103. Sodium 139, potassium 3.6, chloride 104, bicarbonate 26, BUN 11, creatinine 0.89, glucose 281, calcium 7.7, bilirubin 0.2, AST 11, ALT 6, alkaline phosphatase 154. C-reactive protein 15.4. Blood cultures, methicillin-susceptible Staphylococcus aureus (MSSA), two sets . Urine culture on 11/12, as an outpatient in the emergency room, was positive for methicillin-susceptible Staphylococcus aureus (MSSA) as well and urinalysis has [address] abdomen and pelvis: There is no abscess. The gallbladder showed mild pericholecystic fluid without obvious stones. There appears some inflammatory stranding throughout the entire mesentry, as well as some free fluid along the right pericolic gutter into the pelvis. Kidneys are enlarged and have a subtle washed out appearance. Prostate is heterogeneous with cystic changes at the base of the prostate gland and surrounding inflammatory changes, possibly reflecting prostatitis. PHYSICAL EXAMINATION: Temperature is 98.2, pulse 97, respirations 18, blood pressure 130/79, O2 saturation 96% on room air. Heart: Normal S1, S2. No murmurs, rubs or gallops. Lungs are clear. No wheezes, rales or rhonchi. Abdomen: Soft, nontender. Extremities: No clubbing, cyanosis or edema. No calf tenderness. IMPRESSION: 1. Acute prostatitis with positive urine culture and Staphylococcus aureus bacteremia, methicillin-susceptible Staphylococcus aureus (MSSA). Doing better on IV cefazolin. The patient's symptoms were urgency and difficulty starting urine stream. 2. Uncomplicated Staphylococcus aureus bacteremia. The patient defervesced within 48 hours. Blood cultures were negative within 72 hours and he has no hardware in place. Echocardiogram was of acceptable quality. Normal left ventricular size with preserved LV systolic and diastolic function. No significant valvular disease. No vegetation seen. Endocarditis is very unlikely. 3. Diabetes, poorly controlled, currently on insulin. PLAN: Continue on IV cefazolin. The patient will need two weeks of IV antibiotics for Staphylococcus aureus bacteremia. I would also suggest urology consultation for acute prostatitis. The case has been discussed with him and his significant other, Kristine, and they are will to do home IV antibiotics. Blood culture was negative on 11/14. He will need antibiotics until November 28 intravenously with cefazolin 2 gm every 8 hours. PICC line could be scheduled for the morning or midline as the patient would only need antibiotics until November 28. MTDD
[2020-11-18 14:00] VITALS: BP 142/87
--- NOTE | 2020-11-18 17:07 | SMCUROLCON ---
Urology Consultation General Date of Consultation 11/18/20 Reason For Consultation This patient is seen for Dehydration. History of Present Illness The is a 45 y/o M w/ a PMH significant for DM2, HTN, and HL, admitted for DKA and now found to have sepsis, likely 2/2 a UTI. He notes that he started having obstructive and irritative LUTS approximately 1 wk ago. This gradually worsened and when he came to the ER he was found to be in DKA. Urine and blood cultures have grown S aureus. He denies any previous LUTS or urologic history. He has been on ancef and he notes that his LUTS have improved. He still has some obstructive voiding symptoms. A CT A/P was obtained 2 days ago and on my review is concerning for a likely prostate abscess. The patient denies ever having dysuria or fevers. He denies any discomfort when sitting. Past Medical History Medical History see HPI Surgical Hstory Back surgery Medications Current Medications Current Medications Medications (Trade) Dose Ordered Sig/Deepika Route PRN Reason Start Time Stop Time Status Last Admin Dose Admin Acetaminophen (Tylenol Tab) 650 mg Q4H PRN PO PAIN OR FEVER 11/13/20 14:35 11/14/20 10:14 Cefazolin Sodium/ Dextrose 2 gm/IV Miscellaneous Supplies 50 ml @ 75 mls/hr Q8H IV 11/16/20 10:00 11/18/20 09:06 Dextrose (Dextrose 50%) 25 ml ASDIRECTED PRN IV SEE LABEL COMMENTS 11/14/20 07:50 Diatrizoate Meglum/ Diatrizoate Sod (Gastrografin) 10 ml Q30M PO 11/16/20 12:45 11/16/20 13:16 DC 11/16/20 13:49 Docusate Sodium (Colace) 100 mg BID PO 11/15/20 09:00 11/18/20 09:05 Glucagon (Glucagon) 1 mg ASDIRECTED PRN SC SEE LABEL COMMENTS 11/14/20 07:50 Glucose (Glucose) 16 GM ASDIRECTED PRN PO SEE LABEL COMMENTS 11/14/20 07:50 Heparin Sodium (Heparin (Flush)) 200 units ASDIRECTED PRN IV SEE LABEL COMMENTS 11/18/20 10:10 Heparin Sodium (Heparin (Flush)) 200 units PICC IV 11/18/20 18:00 Heparin Sodium (Porcine) (Heparin) 5,000 units Q12H OH 11/13/20 21:00 11/17/20 21:58 Home Med (Med Rec Complete!) ASDIRECTED XX 11/13/20 13:55 11/13/20 13:55 DC Insulin Detemir (Levemir Insulin) 10 units QHS OH 11/16/20 21:00 11/17/20 21:59 Insulin Detemir (Levemir Insulin) 20 units DAILY OH 11/15/20 09:00 11/16/20 20:51 DC 11/16/20 08:34 Insulin Detemir (Levemir Insulin) 20 units DAILY OH 11/17/20 09:00 11/18/20 09:06 Insulin Human Lispro (HumaLOG INSULIN) SEE PROTOCOL TABLE AC OH 11/14/20 12:00 11/18/20 12:46 Insulin Human Lispro (HumaLOG INSULIN) [facility]OTOCOL [facility] 11/14/20 21:00 11/16/20 20:16 Insulin Human Regular 100 unit/ IV Miscellaneous Supplies 100 ml @ 6.66 mls/hr Q15H1M IV 11/13/20 14:05 11/13/20 14:46 DC 11/13/20 14:17 Insulin Human Regular 100 unit/ IV Miscellaneous Supplies 100 ml @ 0 mls/hr Q0M IV 11/13/20 14:35 11/13/20 16:32 DC Insulin Human Regular 100 unit/ IV Miscellaneous Supplies 100 ml @ 0 mls/hr Q0M IV 11/13/20 16:30 11/14/20 09:18 DC 11/14/20 02:27 Metoclopramide HCl (REGLAN INJection) 10 mg Q6HP PRN IV NAUSEA OR VOMITING 11/14/20 10:35 Non-Formulary Medication (Insulin Iv Rate Change Documentation ml/ Hr) ASDIRECTED XX 11/13/20 14:05 11/13/20 14:46 DC Non-Formulary Medication (Insulin Iv Rate Change Documentation ml/ Hr) ASDIRECTED XX 11/13/20 14:35 11/14/20 09:18 DC 11/14/20 08:02 Ondansetron HCl (ZOFRAN INJection) 4 mg Q6HP PRN IV NAUSEA OR VOMITING 11/14/20 07:50 11/14/20 08:14 Polyethylene Glycol (Miralax) 1 pkt DAILYPRN PRN PO CONSTIPATION 11/15/20 10:10 Potassium Chloride/Dextrose/ Sod Cl 1,000 ml @ 150 mls/hr Q6H40M IV 11/13/20 23:35 11/14/20 09:18 DC 11/14/20 07:04 Potassium Chloride/Sodium Chloride 1,000 ml @ 300 mls/hr Q3H20M IV 11/13/20 18:15 11/14/20 06:39 DC 11/13/20 22:11 Sodium Bicarbonate 75 meq/Sodium Chloride 1,075 ml @ 100 mls/hr [id number] IV 11/13/20 17:30 11/13/20 23:59 DC 11/13/20 18:33 Sodium Bicarbonate (Sodium Bicarbonate) 50 meq BOLUS IV 11/13/20 15:30 11/13/20 15:40 DC 11/13/20 15:58 Sodium Chloride 1,000 ml @ 300 mls/hr Q3H20M IV 11/13/20 14:35 11/13/20 18:17 DC 11/13/20 15:15 Sodium Chloride (Saline Lock Flush) 10 ml ASDIRECTED PRN IV SEE LABEL COMMENTS 11/18/20 10:10 Sodium Chloride (Saline Lock Flush) 10 ml PICC IV 11/18/20 18:00 Tamsulosin HCl (Flomax) 0.4 mg QHS PO 11/16/20 21:00 11/16/20 21:00 Vancomycin HCl 750 mg/IV Miscellaneous Supplies 1 each/ Sodium Chloride 275 ml @ 275 mls/hr Q8H IV 11/16/20 05:00 11/16/20 08:54 DC 11/16/20 04:54 Vancomycin HCl 1000 mg/IV Miscellaneous Supplies 1 each/ Sodium Chloride 270 ml @ 270 mls/hr Q12H IV 11/14/20 21:00 11/15/20 23:00 DC 11/15/20 21:28 Allergies Allergies: Coded Allergies: No Known Allergies (Unverified , 06/16/20) Review of Systems General: Denies: Chills, Night Sweats Constitutional: Denies: Fever Skin: Denies: Rash, Lesions, Breakdown, Nail Changes Pulmonary: Denies: Dyspnea, Cough Cardiovascular: Denies Chest Pain, Denies Palpitations Gastrointestinal: Denies: Nausea, Vomiting, Abdominal Pain Genitourinary: Reports: Frequency, Other Symptoms (hesitancy, slowed stream); Denies: Dysuria, Incontinence, Hematuria Musculoskeletal: Denies: Neck Pain, Back Pain Neurological: Denies: Weakness, Numbness, Incoordination, Change in Speech Psych: Reports: Mood Normal; Denies: Anxiety, Depression Physical Examination General Exam: Alert, Cooperative, No Acute Distress Chest Exam: Normal air movement Heart Exam: Rate Normal Abdomen Exam: Soft; No: Tenderness, Mass Skin Exam: Nl turgor and temperature Neuro Exam: Normal Speech Psych Exam: Mental status NL, Mood NL Vital Signs/I&O Vital Signs Date Time Temp Pulse Resp B/P (MAP) Pulse Ox O2 Delivery O2 Flow Rate FiO2 11/18/20 08:06 97.7 90 16 99 Room Air 11/18/20 06:00 135/82 (99) I&O- Last 24 Hours up to 6 AM 11/18/20 06:00 Intake Total 3275 ml Output Total 2100 ml Balance 1175 ml Laboratory Data 24H Labs Laboratory Tests 2 11/17/20 20:05: Bedside Glucose (Misc Panel) 196H 11/18/20 06:26: Nucleated Red Blood Cells % (auto) 0.0, Anion Gap 8, Glomerular Filtration Rate > 60.0, Calcium Level 7.5L 11/18/20 11:53: Bedside Glucose (Misc Panel) 275H CBC/BMP Laboratory Tests 11/18/20 06:26 Microbiology Microbiology 11/14/20 Blood Culture - Preliminary, Resulted No Growth after 72 hours. All specime... 11/13/20 Blood Culture - Final, Complete Staphylococcus Aureus 11/13/20 Blood Culture - Final, Complete Staphylococcus Aureus Assessment The is a 45 y/o M admitted for DKA and sepsis, likely 2/2 a UTI. I am concerned that he has a prostate abscess and have therefore recommended a transurethral incision and drainage to the patient. Since his symptoms are improving on antibiotics the patient does not want to proceed with surgery. We had a long conversation regarding this and that the concern is that after he goes off antibiotics there is a high chance that his symptoms and infection will recur. We discussed potentially obtaining a repeat CT to see if the cystic changes in the prostate have resolved and I explained that if that was going to happen, I suspect it would take a few weeks for a change in appearance on CT. He noted understanding and ultimately decided against surgery, and noted understanding of the possibility that the infection might come back after he finishes his antibiotics. Plan - surgery recommended as the patient's CT is concerning for a prostate abscess - after a discussion of the risks and benefits of surgery (as well as the risks and benefits of not proceeding w/ surgery), the patient opted not to proceed w/ surgery - recommend that he complete a 2 wk course of antibiotics per ID recs - recommend that he continue flomax on discharge - I will have my office arrange a 3-4 wk f/u for the patient GENI DIAMOND MD Nov 18, 2020 17:07
[2020-11-18] MEDS: SODIUM CHLORIDE 0.9% INJ 10 ML SYR IV SCH (17:12)
--- NOTE | 2020-11-18 17:46 | REP ---
PROCEDURE NAME: PICC LINE INSERTION W/SITERITE CLINICAL INFORMATION: snf IV abx. COMPARISON: None. PROCEDURE DESCRIPTION: The procedure was performed by GUERLINE Gandara, under the direct supervision of Dr. Roger. The risks and benefits of the procedure were explained to the patient and an informed consent was obtained both verbally and written. Directly prior to the start of the procedure a formal time-out was completed in the procedure room. The left medial brachial vein was localized using ultrasound guidance. The skin was prepped and draped in sterile fashion. One mL of 1% lidocaine 10 mg/mL was used as a local anesthetic. Using ultrasound guidance the left medial brachial vein was cannulated, and a 0.018 guidewire was inserted and advanced to the level of SVC using fluoroscopic guidance. The needle was removed and a 4.5 Uzbek dilator and peel-away sheath was inserted over the guidewire. A 4.5 Uzbek single lumen catheter was cut to a length of 45 cm. The dilator was removed and the catheter was inserted over the guidewire with the tip ending at the level of the SVC. The peel-away sheath was removed and the catheter was flushed with heparinized saline as per hospital protocol. The catheter was affixed to the skin and a sterile dressing was applied. The patient tolerated the procedure well and there were no immediate complications. CONCLUSION: PICC line insertion into the left medial brachial vein. 0.1 minutes of fluoroscopy time was utilized for this procedure. Some fluoroscopic images are performed with last image hold technology. These images require no additional radiation. <Electronically signed by Harleen Velásquez > 11/18/20 1010 <Electronically signed by Eliecer Roger > 11/18/20 [id number]
--- NOTE | 2020-11-18 18:54 | IPNPDOC ---
Date Seen The patient was seen on 11/18/20. Progress Note SUBJECTIVE: Seen and examined at bedside. Continues to have urinary dribbling and increased urinary frequency but states that this is slightly improved today. No longer having fevers, denies chills, chest pain, palpitations, shortness of breath or n/v/d. OBJECTIVE PHYSICAL EXAMINATION: VITAL SIGNS: please see below General: NAD, comfortable HEENT: PERRLA, EOMI, sclerae clear Neck: supple, normal ROM, no JVD Respiratory: lungs CTAB, no wheeze, no rales, no crackles CVS: RRR, normal S1, S2, no murmurs Abdo: soft, no masses, no hepatosplenomegaly, BS+, no rebound tenderness Extremities: no edema, pulses 2+ MSK: no joint deformities, normal ROM Neuro: no focal neuro deficits, moving all 4 extremities, CN2-12 intact. Strength 5/5 in all 4 extremities. No nystagmus. Psych: calm, cooperative, AAO x 3 LABORATORY DATA, IMAGING STUDIES, MICROBIOLOGY: Please see below. Echocardiogram 11/16/20: 1. Study is of acceptable technical quality, underlying sinus tachycardia. 2. Normal LV size with preserved LV systolic and diastolic function. 3. No significant valvular disease (pulmonic valve was not well seen). 4. Likely normal central venous pressure. 5. Unable to estimate pulmonary artery pressure. 6. No vegetation was visualized. DVT prophylaxis ordered?: Heparin ASSESSMENT AND PLAN: # DKA -Patient now on basal - bolus insulin -increase Levemir 25 units daily, and Levemir 15 units qHS given hyperglycemia -Sliding scale insulin -Carbohydrate consistent diet #. MSSA bacteremia suspected 2/2 prostatis vs prostate abscess. -Cefazolin day 4 -ID consulted, recommendations appreciated -MSSA was also seen in urine culture the day prior. Ordered CT abd/pelvis to look from intra-abdominal cause Echocardiogram shows no vegetations - d/w Dr. Briceno. Suspect prostatitis. - PICC line insertion. Will need 2 weeks of cefazolin for MSSA bacteremia, EOT 11/28/20 - will d/w Dr. Briceno regarding DC plan with abx. Some doubts as to compliance. #. Suspect prostate abscess - urology consult placed, d/w Dr. Petty - patient was evaluated by Dr. Petty. Given hx of DKA, sepsis likely from UTI, with seeding into prostate, high suspcison of prostate abscess. - recommendations was made for transurethral incision and drainage of prostate, but patient refused - per Dr. Petty, to complete 2 weeks abx. F/u in clinic in 3-4 weeks. High risk of recurrence. - to c/w flomax on DC. #DVT ppx -Heparin Dispo: needs PCP on DC. Pending clinical improvement. VS, I&O, 24H, Fishbone Vital Signs/I&O Vital Signs Date Time Temp Pulse Resp B/P (MAP) Pulse Ox O2 Delivery O2 Flow Rate FiO2 11/18/20 14:00 99.0 94 18 142/87 (105) 97 Room Air I&O- Last 24 Hours up to 6 AM 11/18/20 06:00 Intake Total 3275 ml Output Total 2100 ml Balance 1175 ml Laboratory Data 24H LABS Laboratory Tests 2 11/17/20 20:05: Bedside Glucose (Misc Panel) 196H 11/18/20 06:26: Nucleated Red Blood Cells % (auto) 0.0, Anion Gap 8, Glomerular Filtration Rate > 60.0, Calcium Level 7.5L 11/18/20 11:53: Bedside Glucose (Misc Panel) 275H 11/18/20 17:01: Bedside Glucose (Misc Panel) 251H CBC/BMP Laboratory Tests 11/18/20 06:26 Microbiology Microbiology 11/14/20 Blood Culture - Preliminary, Resulted No Growth after 72 hours. All specime... 11/13/20 Blood Culture - Final, Complete Staphylococcus Aureus 11/13/20 Blood Culture - Final, Complete Staphylococcus Aureus CHING BOWLES MD Nov 18, 2020 18:54
[2020-11-18] MEDS: TAMSULOSIN 0.4 MG CAP PO SCH (21:00)
[2020-11-18] MEDS ORDERED: LEVEMIR (INSULIN DETEMIR) 1 UNITS/0.01ML SC SCH (21:00)
[2020-11-18 22:00] VITALS: BP 140/82
[2020-11-19] MEDS ORDERED: RAMELTEON 8 MG TAB (ROZEREM) PO PRN (00:40)
[2020-11-19] MEDS: ceFAZolin SOD 2 GM in IV 1 EA IV SCH ×2 (01:20→09:57)
[2020-11-19] MEDS: SODIUM CHLORIDE 0.9% INJ 10 ML SYR IV PRN ×2 (01:20→02:16)
[2020-11-19] MEDS: SODIUM CHLORIDE 0.9% INJ 10 ML SYR IV SCH (05:44)
[2020-11-19 05:59] LABS: HEMATOCRIT 27.7 % (42.0-52.0); HEMOGLOBIN 9.1 g/dl (13.5-17.5); MEAN CORPUSCULAR HEMOGLOBIN 25.3 pg (27.0-33.0); MEAN CORPUSCULAR HGB CONC 32.9 g/dl (32.0-36.5); MEAN CORPUSCULAR VOLUME 77.2 fl (80.0-96.0); PLATELET COUNT, AUTOMATED 509 10^3/uL (150-450); RED BLOOD COUNT 3.59 10^6/uL (4.30-6.10); WHITE BLOOD COUNT 7.8 10^3/uL (4.0-10.0)
[2020-11-19 06:00] VITALS: BP 138/82
[2020-11-19 06:25] LABS: BLOOD UREA NITROGEN 8 MG/DL (7-18); CALCIUM LEVEL 7.7 MG/DL (8.5-10.1); CARBON DIOXIDE LEVEL 30 MEQ/L (21-32); CHLORIDE LEVEL 105 MEQ/L (98-107); CREATININE FOR GFR 0.79 MG/DL (0.70-1.30); GLOMERULAR FILTRATION RATE > 60.0 (>60); GLUCOSE, FASTING 155 MG/DL (70-100); POTASSIUM SERUM 3.9 MEQ/L (3.5-5.1); SODIUM LEVEL 142 MEQ/L (136-145)
[2020-11-19] MEDS: HEPARIN SOD (PORCINE) 5000UNITS/ML 1ML VIAL/SYRINGE SC SCH (08:39)
[2020-11-19] MEDS: HumaLOG INSULIN (NovoLOG) PER UNIT SC SCH ×2 (08:39→13:12)
[2020-11-19] MEDS: DOCUSATE SODIUM 100MG CAPSULE PO SCH (08:40)
[2020-11-19] MEDS ORDERED: LEVEMIR (INSULIN DETEMIR) 1 UNITS/0.01ML SC SCH (09:00)
[2020-11-19 11:55] LABS: C REACTIVE PROTEIN QUANTITATIV 5.88 MG/DL (0.00-0.30)
[2020-11-19] MEDS ORDERED: CEFA2SOL IV (12:57)
[2020-11-19] MEDS ORDERED: FLOM0.4C39 PO (12:57)
[2020-11-19] MEDS ORDERED: ACET1TAB55 PO (12:57)
[2020-11-19] MEDS ORDERED: LEVE1INJ5 SC (12:57)
[2020-11-19] MEDS ORDERED: BACTDSTA PO ×2 (12:57→13:04)
[2020-11-19] MEDS ORDERED: GLUC1TES2 XX (13:14)
--- NOTE | 2020-11-23 14:26 | DS.PDOC ---
Discharge Summary General Date of Admission Nov 13, 2020 at 14:46 Date of Discharge 11/19/20 Discharge Summary PROCEDURES PERFORMED DURING STAY: PROCEDURE NAME: PICC LINE INSERTION W/SITERITE CLINICAL INFORMATION: alf IV abx. COMPARISON: None. PROCEDURE DESCRIPTION: The procedure was performed by GUERLINE Gandara, under the direct supervision of Dr. Roger. The risks and benefits of the procedure were explained to the patient and an informed consent was obtained both verbally and written. Directly prior to the start of the procedure a formal time-out was completed in the procedure room. The left medial brachial vein was localized using ultrasound guidance. The skin was prepped and draped in sterile fashion. One mL of 1% lidocaine 10 mg/mL was used as a local anesthetic. Using ultrasound guidance the left medial brachial vein was cannulated, and a 0.018 guidewire was inserted and advanced to the level of SVC using fluoroscopic guidance. The needle was removed and a 4.5 [place] dilator and peel-away sheath was inserted over the guidewire. A 4.5 [place] single lumen catheter was cut to a length of 45 cm. The dilator was removed and the catheter was inserted over the guidewire with the tip ending at the level of the SVC. The peel-away sheath was removed and the catheter was flushed with heparinized saline as per hospital protocol. The catheter was affixed to the skin and a sterile dressing was applied. The patient tolerated the procedure well and there were no immediate complications. CONCLUSION: PICC line insertion into the left medial brachial vein. 0.1 minutes of fluoroscopy time was utilized for this procedure. Some fluoroscopic images are performed with last image hold technology. These images require no additional radiation. <Electronically signed by Harleen Velásquez > 11/18/20 1010 <Electronically signed by Eliecer Roger > 11/18/20 1742 COMPLICATIONS/CHIEF COMPLAINT: Dehydration. HISTORY OF PRESENT ILLNESS: "Mr. Jane is a 45 year old male with DM type 2 who presents with dyspnea and found to have DKA. Patient is not verbal and sometimes responds questions with head nods, but otherwise unable to provide a history. Per ED provider, he was able to answer questions better when mother, Mis Jane, was around. I called his mother. Patient does not have a PCP and has not been taking diabetic medications. He has been getting thinner and thinner. He was last seen about 6 days ago before staying at his girlfriend's place. He was not feeling well and was having trouble urinating. Otherwise, he has not been drinking very much fluids. When I saw the patient, he was in breathing rapidly and shallowly. He did not say anything, but followed me with his eyes. He sometimes nodded to questions, but other times just stared at me. Lungs were clear. He was tachycardic. No pitting edema. He has very sluggish capillary refill. Unable to obtain history or ROS. Information obtained from chart and mother. ABG pH 6.894, Bicarb 4, Gap 32, K 5.8, glucose 597. Patient was started on insulin drip and was given 1L in the ED. Will give 2 more liters and a bicarb drip. Patient will be admitted for DKA." HOSPITAL COURSE: # DKA -Patient now on basal - bolus insulin -increase insulin regimen to Levemir 25 units daily, and Levemir 15 units qHS given hyperglycemia -Sliding scale insulin -Carbohydrate consistent diet #. MSSA bacteremia suspected 2/2 prostatitis vs prostate abscess. - 2 sets of blood cultures from 11/13/20 positive for MSSA -Cefazolin 4 days and vancomycin 3 days treatment. -ID consulted, recommendations appreciated -MSSA was also seen in urine culture the day prior. Ordered CT abd/pelvis to look from intra-abdominal cause, suspected prostatitis. Echocardiogram shows no vegetations - d/w Dr. Briceno. Suspect prostatitis, also supported by imaging. - PICC line inserted. Will need 2 weeks of cefazolin for MSSA bacteremia, EOT 11/28/20. Afterwards on November 29, to start course of bactrim DS 1 tab twice per day for 14 days with an end of therapy on December 12, 2020 #. Suspect prostate abscess - urology consult placed, d/w Dr. Petty - patient was evaluated by Dr. Petty. Given hx of DKA, sepsis likely from UTI, with seeding into prostate, high suspcison of prostate abscess. - recommendations was made for transurethral incision and drainage of prostate, but patient refused - per Dr. Petty, to complete 2 weeks abx. F/u in clinic in 3-4 weeks. High risk of recurrence. - to c/w flomax on DC. DISCHARGE MEDICATIONS: Please see below. ALLERGIES: Please see below. PHYSICAL EXAMINATION ON DISCHARGE: VITAL SIGNS: please see below General: NAD, comfortable HEENT: PERRLA, EOMI, sclerae clear Neck: supple, normal ROM, no JVD Respiratory: lungs CTAB, no wheeze, no rales, no crackles CVS: RRR, normal S1, S2, no murmurs Abdo: soft, no masses, no hepatosplenomegaly, BS+, no rebound tenderness Extremities: no edema, pulses 2+ MSK: no joint deformities, normal ROM Neuro: no focal neuro deficits, moving all 4 extremities, CN2-12 intact. Strength 5/5 in all 4 extremities. No nystagmus. Psych: calm, cooperative, AAO x 3 LABORATORY DATA: Please see below. IMAGING: CT abdo pelvis with IV contrast (11/16/20): Small amount of ascites along with inflammatory stranding throughout the mesentery and scattered reactive lymph nodes. The prostate gland is heterogeneous with cystic changes at the base of the prostate gland and surrounding inflammatory changes possibly reflecting prostatitis. Of the possible sources include pyelonephritis as well as a calculus cholecystitis. Echocardiogram 11/16/20: 1. Study is of acceptable technical quality, underlying sinus tachycardia. 2. Normal LV size with preserved LV systolic and diastolic function. 3. No significant valvular disease (pulmonic valve was not well seen). 4. Likely normal central venous pressure. 5. Unable to estimate pulmonary artery pressure. 6. No vegetation was visualized. PROGNOSIS: good ACTIVITY: [As tolerated]. DIET: consistent carbohydrate DISCHARGE PLAN: Please complete 2 weeks of cefazolin 2g Iv every 8 hours until November 28, 2020. Afterwards on November 29, please start course of bactrim DS 1 tab twice per day for 14 days with an end of therapy on December 12, 2020 DISPOSITION: Home Health Service. DISCHARGE INSTRUCTIONS: . Please follow-up with your primary care doctor within 3-5 days . Please follow-up with Dr. Briceno in 2 weeks . Please follow up with urology in 3 weeks. . Please taking medications as prescribed. Please complete 2 weeks of cefazolin 2g Iv every 8 hours until November 28, 2020. Afterwards on November 29, please start course of bactrim DS 1 tab twice per day for 14 days with an end of therapy on December 12, 2020 . If you develop bleeding, chest pain, shortness of breath, seizures, nausea, fevers, or otherwise worsening of your symptoms, please call 911 or return to the nearest emergency room DISCHARGE CONDITION: Stable TIME SPENT ON DISCHARGE: 35 minutes Vital Signs/I&Os Vital Signs Date Time Temp Pulse Resp B/P (MAP) Pulse Ox O2 Delivery O2 Flow Rate FiO2 11/19/20 06:00 97.8 75 21 138/82 (100) 98 Room Air Microbiology Microbiology 11/19/20 Urine Culture - Final, Complete 11/14/20 Blood Culture - Final, Complete NO GROWTH AFTER 5 DAYS 11/13/20 Blood Culture - Final, Complete Staphylococcus Aureus 11/13/20 Blood Culture - Final, Complete Staphylococcus Aureus Discharge Medications Scheduled Blood Sugar Diagnostic (Advanced Glucose Test Strips) 1 Each Strip, 1 STRIP XX BID Cefazolin Sodium/Dextrose,Iso (Cefazolin 2 G/50 ml-Dextrose) 2 Gm/50 Ml Piggyback, 1 GIANCARLO IV Q8H Insulin Detemir (Levemir Flextouch) 100 Unit/1 Ml Insuln.pen, 20 UNIT SC BID Metformin HCl (Metformin HCl ER) 500 Mg Tab.er.24h, 500 MG PO BID, (Reported) Sulfamethoxazole/Trimethoprim (Sulfamethoxazole-Tmp Ds Tablet) 1 Each Tablet, 1 TAB PO BID Tamsulosin HCl (Flomax) 0.4 Mg Capsule, 0.4 MG PO DAILY Scheduled PRN Acetaminophen (Acetaminophen) 325 Mg Tablet, 650 MG PO Q4H PRN for PAIN OR FEVER Allergies Coded Allergies: No Known Allergies (Unverified , 06/16/20) CHING BOWLES MD Nov 23, 2020 14:26
== END 2020-11-19 14:30 | disposition home health service (06) | DRG 871 ==
LOC: M ED 13:24 → EDBD 13:24 → M ICU 14:46 → ENRESERV 16:33 → M MS5PR 11-14 13:57
PROVIDERS: ADMIT Internal Medicine; ATTEND Family Medicine
PROC: 02HV33Z Insertion of Infusion Device into Superior Vena Cava, Percutaneous Approach (ICD-10-PCS; principal; 2020-11-18 15:00)
DX: A41.01 Sepsis due to Methicillin susceptible Staphylococcus aureus (principal); E11.10 Type 2 diabetes mellitus with ketoacidosis without coma; N41.2 Abscess of prostate; Z91.19 Patient's noncompliance with other medical treatment and regimen; R00.0 Tachycardia, unspecified; I10 Essential (primary) hypertension; E78.5 Hyperlipidemia, unspecified; Z20.822 Contact with and (suspected) exposure to COVID-19; Z98.1 Arthrodesis status; F17.210 Nicotine dependence, cigarettes, uncomplicated; F10.10 Alcohol abuse, uncomplicated; R32 Unspecified urinary incontinence; E11.65 Type 2 diabetes mellitus with hyperglycemia; R65.20 Severe sepsis without septic shock; Z79.899 Other long term (current) drug therapy

== ENCOUNTER → 2020-11-23 | Outpatient (REF) | payer OTHER, MEDICAID, MEDICARE ==
[~2020-11-23] MED LIST changes: +ACET1TAB55 PO; +BACTDSTA PO; +CEFA2SOL IV; +FLOM0.4C39 PO; +GLUC1TES2 XX
== END ==
LOC: M SHH 14:07
PROVIDERS: ATTEND Family Medicine
DX: E11.65 Type 2 diabetes mellitus with hyperglycemia (principal)

== ENCOUNTER → 2020-11-23 | Outpatient (REF) | payer OTHER, MEDICAID, MEDICARE ==
[2020-11-23 14:02] LABS: BASO % 0.2 % (0.0-1.0); EOS # 0.1 10^3/uL (0.0-0.5); EOS % 1.3 % (0.0-3.0); HEMATOCRIT 29.3 % (42.0-52.0); LYMPH # 1.8 10^3/uL (1.5-5.0); LYMPH % 20.8 % (24.0-44.0); MEAN CORPUSCULAR HEMOGLOBIN 24.9 pg (27.0-33.0); MEAN CORPUSCULAR HGB CONC 30.7 g/dl (32.0-36.5); MEAN CORPUSCULAR VOLUME 81.2 fl (80.0-96.0); MONO # 0.4 10^3/uL (0.0-0.8); MONO % 4.7 % (2.0-8.0); NEUTROPHILS # 6.4 10^3/uL (1.5-8.5); NEUTROPHILS % 72.5 % (36.0-66.0); PLATELET COUNT, AUTOMATED 590 10^3/uL (150-450); RED BLOOD COUNT 3.61 10^6/uL (4.30-6.10); WHITE BLOOD COUNT 8.8 10^3/uL (4.0-10.0)
[2020-11-23 15:01] LABS: ERYTHROCYTE SEDIMENTATION RATE 107 mm/hr (0-15)
[2020-11-23 15:13] LABS: BLOOD UREA NITROGEN 14 MG/DL (7-18); CREATININE FOR GFR 1.12 MG/DL (0.70-1.30); GLUCOSE, FASTING 363 MG/DL (70-100)
[2020-11-23 15:14] LABS: ALBUMIN 2.6 GM/DL (3.2-5.2); ALT/SGPT 15 U/L (12-78); BILIRUBIN,TOTAL 0.2 MG/DL (0.2-1.0); C REACTIVE PROTEIN QUANTITATIV 2.94 MG/DL (0.00-0.30); CALCIUM LEVEL 8.2 MG/DL (8.5-10.1); CARBON DIOXIDE LEVEL 30 MEQ/L (21-32); CHLORIDE LEVEL 98 MEQ/L (98-107); GLOMERULAR FILTRATION RATE > 60.0 (>60); POTASSIUM SERUM 5.5 MEQ/L (3.5-5.1); SODIUM LEVEL 134 MEQ/L (136-145); TOTAL PROTEIN 7.4 GM/DL (6.4-8.2)
== END ==
LOC: M SHH 13:41
PROVIDERS: ATTEND Internal Medicine Infectious Disease
DX: N41.0 Acute prostatitis (principal); B95.61 Methicillin susceptible Staphylococcus aureus infection as the cause of diseases classified elsewhere

== ENCOUNTER → 2020-11-30 | Outpatient (REF) | payer OTHER, MEDICAID, MEDICARE ==
[2020-11-30 15:39] LABS: BASO % 0.4 % (0.0-1.0); EOS # 0.1 10^3/uL (0.0-0.5); EOS % 1.4 % (0.0-3.0); HEMATOCRIT 29.3 % (42.0-52.0); HEMOGLOBIN 9.3 g/dl (13.5-17.5); LYMPH # 2.2 10^3/uL (1.5-5.0); LYMPH % 27.1 % (24.0-44.0); MEAN CORPUSCULAR HEMOGLOBIN 25.7 pg (27.0-33.0); MEAN CORPUSCULAR HGB CONC 31.7 g/dl (32.0-36.5); MEAN CORPUSCULAR VOLUME 80.9 fl (80.0-96.0); MONO # 0.4 10^3/uL (0.0-0.8); MONO % 5.5 % (2.0-8.0); NEUTROPHILS # 5.2 10^3/uL (1.5-8.5); NEUTROPHILS % 65.2 % (36.0-66.0); PLATELET COUNT, AUTOMATED 490 10^3/uL (150-450); RED BLOOD COUNT 3.62 10^6/uL (4.30-6.10); WHITE BLOOD COUNT 7.9 10^3/uL (4.0-10.0)
[2020-11-30 16:06] LABS: ERYTHROCYTE SEDIMENTATION RATE > 140 mm/hr (0-15)
[2020-11-30 16:38] LABS: ALBUMIN 2.9 GM/DL (3.2-5.2); ALT/SGPT 9 U/L (12-78); BILIRUBIN,TOTAL 0.2 MG/DL (0.2-1.0); BLOOD UREA NITROGEN 20 MG/DL (7-18); C REACTIVE PROTEIN QUANTITATIV 2.22 MG/DL (0.00-0.30); CALCIUM LEVEL 8.9 MG/DL (8.5-10.1); CARBON DIOXIDE LEVEL 28 MEQ/L (21-32); CHLORIDE LEVEL 93 MEQ/L (98-107); GLOMERULAR FILTRATION RATE > 60.0 (>60); GLUCOSE, FASTING 353 MG/DL (70-100); SODIUM LEVEL 131 MEQ/L (136-145); TOTAL PROTEIN 8.2 GM/DL (6.4-8.2)
== END ==
LOC: M SHH 14:56
PROVIDERS: ATTEND Internal Medicine Infectious Disease
DX: N41.0 Acute prostatitis (principal); B95.61 Methicillin susceptible Staphylococcus aureus infection as the cause of diseases classified elsewhere

== ENCOUNTER → 2020-12-07 | Outpatient (REF) | payer OTHER, MEDICAID, MEDICARE ==
[2020-12-07 16:26] LABS: BASO % 0.6 % (0.0-1.0); EOS # 0.2 10^3/uL (0.0-0.5); EOS % 2.9 % (0.0-3.0); HEMATOCRIT 29.9 % (42.0-52.0); HEMOGLOBIN 9.1 g/dl (13.5-17.5); LYMPH # 1.8 10^3/uL (1.5-5.0); LYMPH % 24.6 % (24.0-44.0); MEAN CORPUSCULAR HEMOGLOBIN 24.7 pg (27.0-33.0); MEAN CORPUSCULAR HGB CONC 30.4 g/dl (32.0-36.5); MONO # 0.4 10^3/uL (0.0-0.8); NEUTROPHILS # 4.7 10^3/uL (1.5-8.5); NEUTROPHILS % 66.5 % (36.0-66.0); PLATELET COUNT, AUTOMATED 505 10^3/uL (150-450); RED BLOOD COUNT 3.69 10^6/uL (4.30-6.10); WHITE BLOOD COUNT 7.1 10^3/uL (4.0-10.0)
[2020-12-07 16:46] LABS: ALBUMIN 3.2 GM/DL (3.2-5.2); ALT/SGPT 11 U/L (12-78); BILIRUBIN,TOTAL 0.2 MG/DL (0.2-1.0); BLOOD UREA NITROGEN 18 MG/DL (7-18); C REACTIVE PROTEIN QUANTITATIV 0.96 MG/DL (0.00-0.30); CALCIUM LEVEL 8.7 MG/DL (8.5-10.1); CARBON DIOXIDE LEVEL 30 MEQ/L (21-32); CHLORIDE LEVEL 101 MEQ/L (98-107); CREATININE FOR GFR 1.11 MG/DL (0.70-1.30); GLOMERULAR FILTRATION RATE > 60.0 (>60); GLUCOSE, FASTING 187 MG/DL (70-100); POTASSIUM SERUM 4.8 MEQ/L (3.5-5.1); SODIUM LEVEL 136 MEQ/L (136-145); TOTAL PROTEIN 8.1 GM/DL (6.4-8.2)
[2020-12-07 17:01] LABS: ERYTHROCYTE SEDIMENTATION RATE 88 mm/hr (0-15)
== END ==
LOC: M SHH 15:58
PROVIDERS: ATTEND Internal Medicine Infectious Disease
DX: N41.0 Acute prostatitis (principal); B95.61 Methicillin susceptible Staphylococcus aureus infection as the cause of diseases classified elsewhere

== ENCOUNTER → 2020-12-11 | Outpatient (CLI) | payer OTHER, MEDICAID ==
[2020-12-11 17:32] LABS: C REACTIVE PROTEIN QUANTITATIV 0.31 MG/DL (0.00-0.30); CALCIUM LEVEL 8.7 MG/DL (8.5-10.1); CREATININE FOR GFR 1.45 MG/DL (0.70-1.30); GLOMERULAR FILTRATION RATE 55.8 (>60); POTASSIUM SERUM 5.4 MEQ/L (3.5-5.1)
[2020-12-11 17:34] LABS: BASO % 0.4 % (0.0-1.0); EOS # 0.2 10^3/uL (0.0-0.5); EOS % 3.6 % (0.0-3.0); HEMATOCRIT 29.2 % (42.0-52.0); HEMOGLOBIN 8.9 g/dl (13.5-17.5); LYMPH # 1.8 10^3/uL (1.5-5.0); LYMPH % 35.3 % (24.0-44.0); MEAN CORPUSCULAR HEMOGLOBIN 24.5 pg (27.0-33.0); MEAN CORPUSCULAR HGB CONC 30.5 g/dl (32.0-36.5); MEAN CORPUSCULAR VOLUME 80.4 fl (80.0-96.0); MONO # 0.3 10^3/uL (0.0-0.8); MONO % 5.4 % (2.0-8.0); NEUTROPHILS # 2.8 10^3/uL (1.5-8.5); NEUTROPHILS % 55.1 % (36.0-66.0); PLATELET COUNT, AUTOMATED 459 10^3/uL (150-450); RED BLOOD COUNT 3.63 10^6/uL (4.30-6.10)
[2020-12-11 18:01] LABS: ERYTHROCYTE SEDIMENTATION RATE 76 mm/hr (0-15)
== END ==
LOC: M PLALAB 14:50
PROVIDERS: ATTEND Internal Medicine Infectious Disease
DX: N41.0 Acute prostatitis (principal)

== ENCOUNTER → 2020-12-11 | Outpatient (CLI) | payer OTHER, MEDICAID ==
[2020-12-11 17:18] LABS: APPEARANCE, URINE CLEAR (CLEAR); BACTERIA, URINE AUTO NEGATIVE (NEGATIVE); BILIRUBIN, URINE AUTO NEGATIVE (NEGATIVE); BLOOD, URINE BLOOD NEGATIVE (NEGATIVE); COLOR, URINE STRAW (YELLOW); GLUCOSE, URINE (UA) AUTO NEGATIVE (NEGATIVE); KETONE, URINE AUTO NEGATIVE (NEGATIVE); LEUKOCYTE ESTERASE, URINE AUTO TRACE (NEGATIVE); NITRITE, URINE AUTO NEGATIVE (NEGATIVE); PROTEIN, URINE AUTO NEGATIVE (NEGATIVE); RBC, URINE AUTO 1 /HPF (0-3); SPECIFIC GRAVITY URINE AUTO 1.006 (1.002-1.035); SQUAMOUS EPITHELIAL CELL UR AU 0 /HPF (0-6); UROBILINOGEN, URINE AUTO 0.2 mg/dL (0.0-2.0); WBC, URINE AUTO 10 /HPF (0-3)
== END ==
LOC: M PLALAB 14:47
PROVIDERS: ATTEND Nurse Practitioner Women's Health
DX: N41.2 Abscess of prostate (principal)

== ENCOUNTER → 2020-12-11 | Outpatient (CLI) | payer OTHER, MEDICAID | LOC: M PLALAB 14:49 | PROVIDERS: ATTEND Family Medicine | DX: E11.65 Type 2 diabetes mellitus with hyperglycemia (principal) ==

== ENCOUNTER → 2020-12-11 | Outpatient (CLI) | payer OTHER, MEDICAID ==
[2020-12-11 17:33] LABS: BASO % 0.6 % (0.0-1.0); EOS # 0.2 10^3/uL (0.0-0.5); EOS % 3.7 % (0.0-3.0); HEMATOCRIT 28.9 % (42.0-52.0); HEMOGLOBIN 8.8 g/dl (13.5-17.5); LYMPH # 1.9 10^3/uL (1.5-5.0); LYMPH % 37.3 % (24.0-44.0); MEAN CORPUSCULAR HEMOGLOBIN 24.6 pg (27.0-33.0); MEAN CORPUSCULAR HGB CONC 30.4 g/dl (32.0-36.5); MEAN CORPUSCULAR VOLUME 80.7 fl (80.0-96.0); MONO # 0.3 10^3/uL (0.0-0.8); MONO % 4.8 % (2.0-8.0); NEUTROPHILS # 2.8 10^3/uL (1.5-8.5); NEUTROPHILS % 53.4 % (36.0-66.0); PLATELET COUNT, AUTOMATED 446 10^3/uL (150-450); RED BLOOD COUNT 3.58 10^6/uL (4.30-6.10); WHITE BLOOD COUNT 5.2 10^3/uL (4.0-10.0)
[2020-12-11 17:42] LABS: CREATININE, URINE 36.8 MG/DL; MAU/CREAT RATIO 127.7 MCG/MG (0.0-30.0)
[2020-12-11 18:01] LABS: ERYTHROCYTE SEDIMENTATION RATE 72 mm/hr (0-15)
[2020-12-11 18:03] LABS: C REACTIVE PROTEIN QUANTITATIV 0.33 MG/DL (0.00-0.30); CALCIUM LEVEL 8.9 MG/DL (8.5-10.1); CHOLESTEROL RISK RATIO 4.418 (<5); CREATININE FOR GFR 1.51 MG/DL (0.70-1.30); GLOMERULAR FILTRATION RATE 53.2 (>60); POTASSIUM SERUM 6.2 MEQ/L (3.5-5.1)
== END ==
LOC: M PLALAB 14:44
PROVIDERS: ATTEND Student in an Organized Health Care Education/Training Program
DX: N41.0 Acute prostatitis (principal); E11.65 Type 2 diabetes mellitus with hyperglycemia; N41.2 Abscess of prostate
CPT/HCPCS: 36415; 51798; 80048; 80061; 81001; 82043; 85025; 85652; 86140; 86341; 87086; G0463

== ENCOUNTER → 2020-12-18 | Outpatient (CLI) | payer OTHER, MEDICAID ==
[2020-12-18 17:54] LABS: BLOOD UREA NITROGEN 21 MG/DL (7-18); CALCIUM LEVEL 9.1 MG/DL (8.5-10.1); CARBON DIOXIDE LEVEL 29 MEQ/L (21-32); CHLORIDE LEVEL 104 MEQ/L (98-107); GLOMERULAR FILTRATION RATE > 60.0 (>60); GLUCOSE, FASTING 164 MG/DL (70-100); POTASSIUM SERUM 5.7 MEQ/L (3.5-5.1); SODIUM LEVEL 136 MEQ/L (136-145)
== END ==
LOC: M PLALAB 14:35
PROVIDERS: ATTEND Student in an Organized Health Care Education/Training Program
DX: E87.5 Hyperkalemia (principal)

== ENCOUNTER → 2020-12-24 | Outpatient (CLI) | payer OTHER, MEDICAID ==
[2020-12-24 13:47] LABS: APPEARANCE, URINE CLEAR (CLEAR); BACTERIA, URINE AUTO NEGATIVE (NEGATIVE); BILIRUBIN, URINE AUTO NEGATIVE (NEGATIVE); BLOOD, URINE BLOOD NEGATIVE (NEGATIVE); COLOR, URINE STRAW (YELLOW); GLUCOSE, URINE (UA) AUTO 1+ mg/dL (NEGATIVE); KETONE, URINE AUTO NEGATIVE (NEGATIVE); LEUKOCYTE ESTERASE, URINE AUTO NEGATIVE (NEGATIVE); NITRITE, URINE AUTO NEGATIVE (NEGATIVE); PROTEIN, URINE AUTO NEGATIVE (NEGATIVE); RBC, URINE AUTO 0 /HPF (0-3); SPECIFIC GRAVITY URINE AUTO 1.006 (1.002-1.035); SQUAMOUS EPITHELIAL CELL UR AU 0 /HPF (0-6); UROBILINOGEN, URINE AUTO 0.2 mg/dL (0.0-2.0); WBC, URINE AUTO 5 /HPF (0-3)
[2020-12-24 13:47] LABS: BASO % 0.5 % (0.0-1.0); EOS # 0.1 10^3/uL (0.0-0.5); EOS % 1.8 % (0.0-3.0); HEMATOCRIT 32.5 % (42.0-52.0); HEMOGLOBIN 10.1 g/dl (13.5-17.5); LYMPH # 1.6 10^3/uL (1.5-5.0); LYMPH % 28.3 % (24.0-44.0); MEAN CORPUSCULAR HEMOGLOBIN 25.4 pg (27.0-33.0); MEAN CORPUSCULAR HGB CONC 31.1 g/dl (32.0-36.5); MEAN CORPUSCULAR VOLUME 81.7 fl (80.0-96.0); MONO # 0.3 10^3/uL (0.0-0.8); NEUTROPHILS # 3.6 10^3/uL (1.5-8.5); NEUTROPHILS % 64.2 % (36.0-66.0); PLATELET COUNT, AUTOMATED 348 10^3/uL (150-450); RED BLOOD COUNT 3.98 10^6/uL (4.30-6.10); WHITE BLOOD COUNT 5.6 10^3/uL (4.0-10.0)
[2020-12-24 14:12] LABS: BLOOD UREA NITROGEN 18 MG/DL (7-18); CALCIUM LEVEL 9.2 MG/DL (8.5-10.1); CARBON DIOXIDE LEVEL 29 MEQ/L (21-32); CHLORIDE LEVEL 103 MEQ/L (98-107); CREATININE FOR GFR 1.03 MG/DL (0.70-1.30); GLOMERULAR FILTRATION RATE > 60.0 (>60); GLUCOSE, FASTING 226 MG/DL (70-100); POTASSIUM SERUM 5.5 MEQ/L (3.5-5.1); SODIUM LEVEL 137 MEQ/L (136-145)
== END ==
LOC: M PLALAB 10:20
PROVIDERS: ATTEND Internal Medicine Infectious Disease
DX: N41.0 Acute prostatitis (principal); E87.5 Hyperkalemia
CPT/HCPCS: 36415; 80048; 81001; 85025; 86140; G0463

== ENCOUNTER → 2021-01-01 | Outpatient (REF) | payer MEDICARE, MEDICAID | LOC: M SFHCPLAZ 15:45 | DX: E87.5 Hyperkalemia (principal) ==

== ENCOUNTER → 2021-01-08 | Outpatient (CLI) | payer OTHER, MEDICAID ==
[2021-01-08 09:30] LABS: BLOOD UREA NITROGEN 25 MG/DL (7-18); CALCIUM LEVEL 9.6 MG/DL (8.5-10.1); CARBON DIOXIDE LEVEL 28 MEQ/L (21-32); CHLORIDE LEVEL 110 MEQ/L (98-107); CREATININE FOR GFR 1.16 MG/DL (0.70-1.30); GLOMERULAR FILTRATION RATE > 60.0 (>60); GLUCOSE, FASTING 112 MG/DL (70-100); POTASSIUM SERUM 5.3 MEQ/L (3.5-5.1); SODIUM LEVEL 141 MEQ/L (136-145)
[2021-01-08 09:44] LABS: CORTISOL AM 22.3 UG/DL (4.3-22.4)
== END ==
LOC: M LAB 08:15
PROVIDERS: ATTEND Student in an Organized Health Care Education/Training Program
DX: E87.5 Hyperkalemia (principal)

== ENCOUNTER 2022-01-09 20:00 | Emergency (ER) | payer OTHER, MEDICAID ==
[~2022-01-09] VITALS: Ht 177.8 cm; Wt 70.5 kg
[2022-01-09] MEDS ORDERED: BUPR1FIL (20:26)
[2022-01-09] MEDS ORDERED: NS 1,000 ML IV ONE (20:45)
[2022-01-09] MEDS ORDERED: HumuLIN R (REGULAR) INSULIN (NovoLIN R) **100U/ML** PER UNIT IV ONE (20:45)
[2022-01-09 21:21] LABS: BASO % 0.3 % (0.0-1.0); EOS % 0.3 % (0.0-3.0); HEMATOCRIT 35.4 % (42.0-52.0); HEMOGLOBIN 11.3 g/dl (13.5-17.5); LYMPH # 1.2 10^3/uL (1.5-5.0); MEAN CORPUSCULAR HGB CONC 31.9 g/dl (32.0-36.5); MEAN CORPUSCULAR VOLUME 81.6 fl (80.0-96.0); MONO # 0.5 10^3/uL (0.0-0.8); NEUTROPHILS # 10.4 10^3/uL (1.5-8.5); NEUTROPHILS % 84.9 % (36.0-66.0); PLATELET COUNT, AUTOMATED 390 10^3/uL (150-450); RED BLOOD COUNT 4.34 10^6/uL (4.30-6.10); WHITE BLOOD COUNT 12.2 10^3/uL (4.0-10.0)
[2022-01-09 21:22] LABS: VENOUS BASE EXCESS -6.9 (-2.0-2.0); VENOUS HCO3 20.3 MEQ/L (23.0-27.0); VENOUS O2 SATURATION 83.1 % (60.0-80.0); VENOUS PARTIAL PRESSURE CO2 47.3 mmHg (38.0-50.0); VENOUS PARTIAL PRESSURE O2 50.8 mmHg (30.0-50.0); VENOUS STANDARD HCO3 18.6 MEQ/L; VENOUS TOTAL CO2 21.7 MEQ/L (24.0-28.0)
[2022-01-09 21:40] LABS: OSMOLALITY SERUM 316 MOSM/KG (275-295)
[2022-01-09 21:50] LABS: ACETONE/KETONE 5.07 MG/DL (<2.81); ALBUMIN 3.8 GM/DL (3.2-5.2); ALT/SGPT 18 U/L (12-78); BILIRUBIN,DIRECT 0.1 MG/DL (0.0-0.2); BILIRUBIN,TOTAL 0.3 MG/DL (0.2-1.0); LIPASE 130 U/L (73-393)
[2022-01-09 21:51] LABS: ETHYL ALCOHOL (ETHANOL) < 0.003 % (0.000-0.010)
[2022-01-09 22:00] VITALS: BP 162/94
[2022-01-09 22:10] LABS: HEMOGLOBIN A1c 13.3 %
== END 2022-01-09 22:09 | disposition left against medical advice (07) ==
LOC: M ED 20:00
DX: F43.0 Acute stress reaction (principal); E11.10 Type 2 diabetes mellitus with ketoacidosis without coma; I10 Essential (primary) hypertension; I25.10 Atherosclerotic heart disease of native coronary artery without angina pectoris; Z79.899 Other long term (current) drug therapy; Z79.84 Long term (current) use of oral hypoglycemic drugs
CPT/HCPCS: 80047; 80076; 81001; 82010; 82077; 82803; 83036; 83690; 83930; 85025; 96361; 96374; 99284; J1815

== ENCOUNTER 2022-02-04 18:17 | Inpatient (IN) | payer OTHER, MEDICAID ==
[~2022-02-04] VITALS: Ht 177.8 cm; Wt 64.5 kg
[~2022-02-04 18:17] MED LIST changes: +BUPR1FIL SL
[2022-02-04 19:29] LABS: BASO % 0.3 % (0.0-1.0); EOS % 0.3 % (0.0-3.0); MEAN CORPUSCULAR HEMOGLOBIN 24.9 pg (27.0-33.0); MEAN CORPUSCULAR HGB CONC 30.7 g/dl (32.0-36.5); MONO # 0.3 10^3/uL (0.0-0.8); MONO % 2.4 % (2.0-8.0); NEUTROPHILS # 9.2 10^3/uL (1.5-8.5); NEUTROPHILS % 79.7 % (36.0-66.0); PLATELET COUNT, AUTOMATED 455 10^3/uL (150-450); RED BLOOD COUNT 2.05 10^6/uL (4.30-6.10); WHITE BLOOD COUNT 11.5 10^3/uL (4.0-10.0)
[2022-02-04 19:39] LABS: HEMATOCRIT 16.6 % (42.0-52.0); HEMOGLOBIN 5.1 g/dl (13.5-17.5)
[2022-02-04] MEDS ORDERED: METF10004 PO (20:02)
[2022-02-04] MEDS ORDERED: BUPR1FIL SL (20:02)
[2022-02-04] MEDS ORDERED: MIRT-10 PO (20:02)
[2022-02-04] MEDS ORDERED: HOME MED LIST COMPLETE! XX SCH (20:05)
[2022-02-04 20:25] LABS: ALBUMIN 2.6 GM/DL (3.2-5.2); BILIRUBIN,TOTAL 0.2 MG/DL (0.2-1.0); CALCIUM LEVEL 8.3 MG/DL (8.5-10.1); CREATININE FOR GFR 1.42 MG/DL (0.70-1.30); FREE THYROXINE INDEX 3.5 % (1.4-3.8); GLOMERULAR FILTRATION RATE 56.9 (>60); POTASSIUM SERUM 4.7 MEQ/L (3.5-5.1); THYROID STIMULATING HORMONE 0.738 uIU/ML (0.358-3.740); THYROXINE (T4) 9.4 UG/DL (4.5-12.0); TOTAL PROTEIN 7.7 GM/DL (6.4-8.2)
[2022-02-04] MEDS ORDERED: INSULIN LISPRO (NovoLOG) PER UNIT SC SCH (21:00)
[2022-02-04] MEDS ORDERED: ISOVUE-370 76% 100ML VIAL As Ordered ONE (21:18)
[2022-02-04 22:49] LABS: RSV AMPLIFICATION NEGATIVE (NEGATIVE)
[2022-02-04] MEDS ORDERED: ACETAMINOPHEN TAB 650MG DOSE (2X325MG) PO PRN (22:55)
[2022-02-04] MEDS ORDERED: GLUCOSE 4GM CHEW TABLET PO PRN (22:55)
[2022-02-04] MEDS ORDERED: GLUCAGON INJ 1MG VIAL SC PRN (22:55)
[2022-02-04] MEDS ORDERED: DEXTROSE 50% 50 ML SYRINGE IV PRN (22:55)
[2022-02-04] MEDS ORDERED: MOM 30ML SUSPENSION UDC PO PRN (22:55)
[2022-02-04] MEDS ORDERED: PANTOPRAZOLE 40MG VIAL IV ONE (23:00)
[2022-02-04 23:18] VITALS: BP 130/80
[2022-02-05] VITALS (18 sets, daily range): BP systolic 115–194; BP diastolic 62–95
[2022-02-05 02:21] LABS: HEMATOCRIT 17.2 % (42.0-52.0); HEMOGLOBIN 5.5 g/dl (13.5-17.5)
[2022-02-05] MEDS: NS 1,000 ML IV SCH ×2 (04:33→09:06)
[2022-02-05 06:00] LABS: MEAN CORPUSCULAR HGB CONC 32.5 g/dl (32.0-36.5); PLATELET COUNT, AUTOMATED 318 10^3/uL (150-450); RED BLOOD COUNT 2.41 10^6/uL (4.30-6.10); WHITE BLOOD COUNT 8.5 10^3/uL (4.0-10.0)
[2022-02-05 06:04] LABS: HEMOGLOBIN 6.5 g/dl (13.5-17.5)
[2022-02-05 06:38] LABS: ALBUMIN 2.3 GM/DL (3.2-5.2); ALT/SGPT 9 U/L (12-78); BILIRUBIN,TOTAL 0.5 MG/DL (0.2-1.0); BLOOD UREA NITROGEN 38 MG/DL (7-18); CALCIUM LEVEL 8.3 MG/DL (8.5-10.1); CARBON DIOXIDE LEVEL 23 MEQ/L (21-32); CHLORIDE LEVEL 102 MEQ/L (98-107); CREATININE FOR GFR 1.35 MG/DL (0.70-1.30); GLOMERULAR FILTRATION RATE > 60.0 (>60); GLUCOSE, FASTING 391 MG/DL (70-100); POTASSIUM SERUM 4.3 MEQ/L (3.5-5.1); SODIUM LEVEL 131 MEQ/L (136-145); TOTAL PROTEIN 6.3 GM/DL (6.4-8.2)
[2022-02-05] MEDS ORDERED: INSULIN LISPRO (NovoLOG) PER UNIT SC SCH ×2 (07:30→12:00)
[2022-02-05 08:02] LABS: HEMOGLOBIN 6.4 g/dl (13.5-17.5)
[2022-02-05] MEDS: PANTOPRAZOLE 40MG VIAL IV SCH ×2 (09:07→20:23)
[2022-02-05] MEDS: DOCUSATE SODIUM 100MG CAPSULE PO SCH ×2 (09:07→20:19)
[2022-02-05] MEDS ORDERED: D5W/0.45% SODIUM CHLORIDE 1,000 ML IV SCH (13:20)
[2022-02-05] MEDS ORDERED: LIDOCAINE 2% 100MG/5ML SDV (FOR ANES.) As Ordered ONE (14:08)
[2022-02-05] MEDS ORDERED: propofoL 200 MG/20 ML VIAL As Ordered ONE (14:08)
[2022-02-05] MEDS ORDERED: BUPRENORPHINE/NALOXONE 8-2MG SUBLINGUAL TABLET(SUBOXONE) PO SCH ×2 (15:00→21:00)
[2022-02-05] MEDS ORDERED: LEVEMIR (INSULIN DETEMIR) 1 UNITS/0.01ML SC ONE (15:10)
[2022-02-05 16:14] LABS: HEMATOCRIT 22.3 % (42.0-52.0); HEMOGLOBIN 7.5 g/dl (13.5-17.5)
[2022-02-05] MEDS ORDERED: PILL CUTTER 1 EACH XX PRN (17:00)
[2022-02-05] MEDS: INSULIN LISPRO (NovoLOG) PER UNIT SC SCH ×2 (17:30→20:19)
[2022-02-05] MEDS: BUPRENORPHINE/NALOXONE 8-2MG SUBLINGUAL TABLET(SUBOXONE) SL SCH ×2 (18:29→20:21)
[2022-02-05] MEDS: MIRTAZAPINE 15 MG TAB PO SCH (20:21)
[2022-02-05] MEDS: LEVEMIR (INSULIN DETEMIR) 1 UNITS/0.01ML SC SCH (20:23)
[2022-02-05 21:53] LABS: HEMATOCRIT 24.3 % (42.0-52.0)
[2022-02-06 03:48] VITALS: BP 136/78
[2022-02-06 05:09] LABS: HEMATOCRIT 25.7 % (42.0-52.0); HEMOGLOBIN 8.5 g/dl (13.5-17.5); MEAN CORPUSCULAR HEMOGLOBIN 27.7 pg (27.0-33.0); MEAN CORPUSCULAR HGB CONC 33.1 g/dl (32.0-36.5); MEAN CORPUSCULAR VOLUME 83.7 fl (80.0-96.0); PLATELET COUNT, AUTOMATED 329 10^3/uL (150-450); RED BLOOD COUNT 3.07 10^6/uL (4.30-6.10); WHITE BLOOD COUNT 7.4 10^3/uL (4.0-10.0)
[2022-02-06 05:41] LABS: BLOOD UREA NITROGEN 23 MG/DL (7-18); CALCIUM LEVEL 8.9 MG/DL (8.5-10.1); CARBON DIOXIDE LEVEL 25 MEQ/L (21-32); CHLORIDE LEVEL 109 MEQ/L (98-107); CREATININE FOR GFR 1.12 MG/DL (0.70-1.30); GLOMERULAR FILTRATION RATE > 60.0 (>60); GLUCOSE, FASTING 164 MG/DL (70-100); MAGNESIUM LEVEL 1.8 MG/DL (1.8-2.4); PHOSPHORUS LEVEL 3.3 MG/DL (2.5-4.9); SODIUM LEVEL 139 MEQ/L (136-145)
[2022-02-06] MEDS ORDERED: MOM 30ML SUSPENSION UDC PO ONE (07:00)
[2022-02-06 08:00] VITALS: BP 152/84
[2022-02-06] MEDS: BUPRENORPHINE/NALOXONE 8-2MG SUBLINGUAL TABLET(SUBOXONE) SL SCH ×3 (09:23→21:38)
[2022-02-06] MEDS: DOCUSATE SODIUM 100MG CAPSULE PO SCH ×2 (09:23→21:37)
[2022-02-06] MEDS: INSULIN LISPRO (NovoLOG) PER UNIT SC SCH ×4 (09:24→21:00)
[2022-02-06] MEDS: PANTOPRAZOLE 40MG VIAL IV SCH ×2 (09:24→21:38)
[2022-02-06 11:28] VITALS: BP 151/87
[2022-02-06 16:47] LABS: HEMATOCRIT 26.2 % (42.0-52.0); HEMOGLOBIN 8.7 g/dl (13.5-17.5)
[2022-02-06 20:00] VITALS: BP 139/75
[2022-02-06] MEDS: LEVEMIR (INSULIN DETEMIR) 1 UNITS/0.01ML SC SCH (21:37)
[2022-02-06] MEDS: MIRTAZAPINE 15 MG TAB PO SCH (21:37)
[2022-02-07] VITALS: BP 125/69
[2022-02-07 01:10] LABS: HEMATOCRIT 23.9 % (42.0-52.0); HEMOGLOBIN 7.9 g/dl (13.5-17.5)
[2022-02-07 04:00] VITALS: BP 129/91
[2022-02-07 06:38] LABS: HEMATOCRIT 26.1 % (42.0-52.0); HEMOGLOBIN 8.4 g/dl (13.5-17.5); MEAN CORPUSCULAR HEMOGLOBIN 27.3 pg (27.0-33.0); MEAN CORPUSCULAR HGB CONC 32.2 g/dl (32.0-36.5); MEAN CORPUSCULAR VOLUME 84.7 fl (80.0-96.0); PLATELET COUNT, AUTOMATED 334 10^3/uL (150-450); RED BLOOD COUNT 3.08 10^6/uL (4.30-6.10); WHITE BLOOD COUNT 8.5 10^3/uL (4.0-10.0)
[2022-02-07 07:07] LABS: BLOOD UREA NITROGEN 19 MG/DL (7-18); CARBON DIOXIDE LEVEL 24 MEQ/L (21-32); CHLORIDE LEVEL 108 MEQ/L (98-107); CREATININE FOR GFR 1.25 MG/DL (0.70-1.30); GLOMERULAR FILTRATION RATE > 60.0 (>60); GLUCOSE, FASTING 219 MG/DL (70-100); POTASSIUM SERUM 4.1 MEQ/L (3.5-5.1); SODIUM LEVEL 138 MEQ/L (136-145)
[2022-02-07 07:08] LABS: CALCIUM LEVEL 8.3 MG/DL (8.5-10.1); MAGNESIUM LEVEL 1.6 MG/DL (1.8-2.4); PHOSPHORUS LEVEL 3.7 MG/DL (2.5-4.9)
[2022-02-07 08:00] VITALS: BP 140/80
[2022-02-07] MEDS: BUPRENORPHINE/NALOXONE 8-2MG SUBLINGUAL TABLET(SUBOXONE) SL SCH (08:44)
[2022-02-07] MEDS: DOCUSATE SODIUM 100MG CAPSULE PO SCH (08:44)
[2022-02-07] MEDS: PANTOPRAZOLE 40MG VIAL IV SCH (08:44)
[2022-02-07] MEDS: INSULIN LISPRO (NovoLOG) PER UNIT SC SCH ×2 (08:44→13:31)
[2022-02-07] MEDS ORDERED: CARA1TAB6 PO (09:02)
[2022-02-07] MEDS ORDERED: PANT40TA29 PO (09:02)
[2022-02-07] MEDS ORDERED: MAGNESIUM OXIDE 400MG TAB (MAG-OX) PO ONE (10:00)
== END 2022-02-07 14:17 | disposition home or self-care (01) | DRG 378 ==
LOC: M ED 18:17 → M ED INP 22:51 → ENRESERV 02-05 00:09 → M PCU 02-05 01:16
PROVIDERS: ADMIT Family Medicine; ATTEND Family Medicine
PROC: BW21YZZ Computerized Tomography (CT Scan) of Abdomen and Pelvis using Other Contrast (ICD-10-PCS; principal; 2022-02-04)
PROC: 30233N1 Transfusion of Nonautologous Red Blood Cells into Peripheral Vein, Percutaneous Approach (ICD-10-PCS; 2022-02-04)
PROC: 0DJ08ZZ Inspection of Upper Intestinal Tract, Via Natural or Artificial Opening Endoscopic (ICD-10-PCS; 2022-02-05)
DX: K27.4 Chronic or unspecified peptic ulcer, site unspecified, with hemorrhage (principal); D62 Acute posthemorrhagic anemia; N17.9 Acute kidney failure, unspecified; E11.9 Type 2 diabetes mellitus without complications; I10 Essential (primary) hypertension; E78.5 Hyperlipidemia, unspecified; Z91.14 Patient's other noncompliance with medication regimen; K59.00 Constipation, unspecified; Z20.822 Contact with and (suspected) exposure to COVID-19; Z79.84 Long term (current) use of oral hypoglycemic drugs; Z79.899 Other long term (current) drug therapy; K31.7 Polyp of stomach and duodenum

== ENCOUNTER 2022-03-13 16:38 | Observation (INO) | payer OTHER, MEDICAID ==
[~2022-03-13] VITALS: Ht 177.8 cm; Wt 63.3 kg
[~2022-03-13 16:38] MED LIST changes: +CARA1TAB6 PO; +METF10004 PO; +MIRT-10 PO; +PANT40TA29 PO
[2022-03-13 18:28] LABS: VENOUS BASE EXCESS 1.6 (-2.0-2.0); VENOUS HCO3 28.9 MEQ/L (23.0-27.0); VENOUS O2 SATURATION 79.4 % (60.0-80.0); VENOUS PARTIAL PRESSURE CO2 60.9 mmHg (38.0-50.0); VENOUS PH 7.294 UNITS (7.330-7.430); VENOUS STANDARD HCO3 25.6 MEQ/L; VENOUS TOTAL CO2 30.8 MEQ/L (24.0-28.0)
[2022-03-13 18:31] LABS: BASO % 0.4 % (0.0-1.0); EOS % 0.2 % (0.0-3.0); HEMATOCRIT 25.8 % (42.0-52.0); LYMPH # 0.9 10^3/uL (1.5-5.0); LYMPH % 8.4 % (24.0-44.0); MEAN CORPUSCULAR HEMOGLOBIN 24.8 pg (27.0-33.0); MEAN CORPUSCULAR VOLUME 79.9 fl (80.0-96.0); MONO # 0.3 10^3/uL (0.0-0.8); MONO % 2.9 % (2.0-8.0); NEUTROPHILS % 87.7 % (36.0-66.0); PLATELET COUNT, AUTOMATED 586 10^3/uL (150-450); RED BLOOD COUNT 3.23 10^6/uL (4.30-6.10); WHITE BLOOD COUNT 10.3 10^3/uL (4.0-10.0)
[2022-03-13 19:00] LABS: ALBUMIN 3.1 GM/DL (3.2-5.2); BILIRUBIN,DIRECT 0.1 MG/DL (0.0-0.2); BILIRUBIN,TOTAL 0.3 MG/DL (0.2-1.0); TOTAL PROTEIN 9.6 GM/DL (6.4-8.2)
[2022-03-13] MEDS ORDERED: NS 1,000 ML IV ONE (19:10)
[2022-03-13 19:20] LABS: HEMOGLOBIN A1c 11.6 %
[2022-03-13 20:03] LABS: RSV AMPLIFICATION NEGATIVE (NEGATIVE)
[2022-03-13] MEDS ORDERED: PANT-23 PO (20:38)
[2022-03-13] MEDS ORDERED: MIRT-11 PO (20:38)
[2022-03-13] MEDS ORDERED: METF-838 PO (20:38)
[2022-03-13] MEDS ORDERED: HOME MED LIST COMPLETE! XX SCH (20:40)
[2022-03-13] MEDS ORDERED: INSULIN LISPRO (NovoLOG) PER UNIT SC ONE (21:30)
[2022-03-13] MEDS ORDERED: LEVEMIR (INSULIN DETEMIR) 1 UNITS/0.01ML SC ONE (21:30)
[2022-03-13] MEDS ORDERED: ACETAMINOPHEN TAB 650MG DOSE (2X325MG) PO PRN (21:30)
[2022-03-13] MEDS ORDERED: GLUCAGON INJ 1MG VIAL SC PRN (21:45)
[2022-03-13] MEDS ORDERED: DEXTROSE 50% 50 ML SYRINGE IV PRN (21:45)
[2022-03-13] MEDS ORDERED: GLUCOSE 4GM CHEW TABLET PO PRN (21:45)
[2022-03-13] MEDS: NS 1,000 ML IV SCH (22:01)
[2022-03-13 22:14] LABS: PERCENT SATURATION 13.1 % (19.7-50.0)
[2022-03-13] MEDS: INSULIN LISPRO (NovoLOG) PER UNIT SC SCH (22:19)
[2022-03-13 22:42] LABS: APPEARANCE, URINE MANUAL CLEAR (CLEAR); COLOR, URINE MANUAL YELLOW (YELLOW)
[2022-03-13 22:43] LABS: BILIRUBIN, URINE MANUAL NEGATIVE (NEGATIVE); BLOOD URINE MANUAL TRACE (NEGATIVE); GLUCOSE, URINE (UA) MANUAL 4+(1000 MG/DL) mg/dL (NEGATIVE); KETONE, URINE MANUAL 1+ mg/dL (NEGATIVE); NITRITE, URINE MANUAL NEGATIVE (NEGATIVE); PROTEIN, URINE MANUAL TRACE mg/dL (NEGATIVE); UROBILINOGEN, URINE MANUAL NORMAL (NORMAL)
[2022-03-13 22:44] LABS: LEUKOCYTE ESTERASE, URINE MAN NEGATIVE (NEGATIVE); OSMOLALITY URINE 510 MOSM/KG (50-1400)
[2022-03-13 22:49] LABS: AMORPHOUS SEDIMENT, URINE MOD AMOUNT (NEGATIVE); BACTERIA, URINE NONE SEEN; GRANULAR CAST, URINE 0-1 /lpf; HYALINE CAST, URINE 0-1 /lpf (0-1); SQUAMOUS EPITHELIAL CELL URINE SMALL AMOUNT /hpf (SMALL AMT)
[2022-03-13 23:36] LABS: CREATININE,RANDOM URINE 69.7 MG/DL; SODIUM,RANDOM URINE 45 MEQ/L; TOTAL PROTEIN,RANDOM URINE 82.7 MG/DL (0.0-12.0)
[2022-03-14] VITALS (7 sets, daily range): BP systolic 120–156; BP diastolic 62–77
[2022-03-14] MEDS: NS 1,000 ML IV SCH (04:01)
[2022-03-14 07:15] LABS: HEMATOCRIT 22.4 % (42.0-52.0); MEAN CORPUSCULAR HEMOGLOBIN 24.6 pg (27.0-33.0); MEAN CORPUSCULAR HGB CONC 30.8 g/dl (32.0-36.5); WHITE BLOOD COUNT 7.7 10^3/uL (4.0-10.0)
[2022-03-14 07:24] LABS: HEMOGLOBIN 6.9 g/dl (13.5-17.5); PLATELET COUNT, AUTOMATED 441 10^3/uL (150-450)
[2022-03-14] MEDS: INSULIN LISPRO (NovoLOG) PER UNIT SC SCH ×4 (07:25→20:41)
[2022-03-14 07:39] LABS: CALCIUM LEVEL 8.3 MG/DL (8.5-10.1); CREATININE FOR GFR 1.58 MG/DL (0.70-1.30); GLOMERULAR FILTRATION RATE 50.3 (>60); POTASSIUM SERUM 3.7 MEQ/L (3.5-5.1)
[2022-03-14] MEDS: BUPRENORPHINE/NALOXONE 8-2MG SUBLINGUAL TABLET(SUBOXONE) SL SCH ×3 (08:48→20:40)
[2022-03-14] MEDS: PANTOPRAZOLE 40MG VIAL IV SCH ×2 (08:48→20:40)
[2022-03-14] MEDS: FERROUS SULFATE 325MG TAB PO SCH ×2 (08:48→20:40)
[2022-03-14] MEDS: DOCUSATE SODIUM 100MG CAPSULE PO SCH ×2 (08:48→20:40)
[2022-03-14] MEDS ORDERED: PANTOPRAZOLE 40MG TAB (PROTONIX) PO SCH (09:00)
[2022-03-14 10:21] LABS: HEPATITIS C VIRUS ABY INDEX < 0.0 INDEX (<0.8); HIV 1&2 SCREEN CENTAUR NEGATIVE (NEGATIVE)
[2022-03-14 14:40] LABS: HEMATOCRIT 26.4 % (42.0-52.0); HEMOGLOBIN 8.2 g/dl (13.5-17.5)
[2022-03-14] MEDS ORDERED: LEVEMIR (INSULIN DETEMIR) 1 UNITS/0.01ML SC SCH (21:00)
[2022-03-14] MEDS ORDERED: MIRTAZAPINE 15 MG TAB PO SCH (21:00)
[2022-03-15 00:36] LABS: HEMATOCRIT 26.7 % (42.0-52.0); HEMOGLOBIN 8.5 g/dl (13.5-17.5)
[2022-03-15 06:00] VITALS: BP 143/81
[2022-03-15] MEDS ORDERED: NS 1,000 ML IV SCH (07:50)
[2022-03-15 07:57] LABS: HEMATOCRIT 28.6 % (42.0-52.0); HEMOGLOBIN 8.8 g/dl (13.5-17.5); MEAN CORPUSCULAR HGB CONC 30.8 g/dl (32.0-36.5); MEAN CORPUSCULAR VOLUME 81.3 fl (80.0-96.0); PLATELET COUNT, AUTOMATED 418 10^3/uL (150-450); RED BLOOD COUNT 3.52 10^6/uL (4.30-6.10); WHITE BLOOD COUNT 6.2 10^3/uL (4.0-10.0)
[2022-03-15] MEDS: FERROUS SULFATE 325MG TAB PO SCH (08:17)
[2022-03-15] MEDS: PANTOPRAZOLE 40MG VIAL IV SCH (08:17)
[2022-03-15] MEDS: DOCUSATE SODIUM 100MG CAPSULE PO SCH (08:17)
[2022-03-15] MEDS: INSULIN LISPRO (NovoLOG) PER UNIT SC SCH (08:17)
[2022-03-15] MEDS: BUPRENORPHINE/NALOXONE 8-2MG SUBLINGUAL TABLET(SUBOXONE) SL SCH (08:17)
[2022-03-15 08:29] LABS: BLOOD UREA NITROGEN 21 MG/DL (7-18); CALCIUM LEVEL 8.6 MG/DL (8.5-10.1); CARBON DIOXIDE LEVEL 29 MEQ/L (21-32); CHLORIDE LEVEL 102 MEQ/L (98-107); CREATININE FOR GFR 1.23 MG/DL (0.70-1.30); GLOMERULAR FILTRATION RATE > 60.0 (>60); GLUCOSE, FASTING 241 MG/DL (70-100); POTASSIUM SERUM 4.1 MEQ/L (3.5-5.1); SODIUM LEVEL 136 MEQ/L (136-145)
[2022-03-15] MEDS ORDERED: FERR1TAB8 PO (11:49)
[2022-03-15] MEDS ORDERED: COLA100C5 PO (11:49)
[2022-03-15] MEDS ORDERED: SENN18TA PO (11:49)
[2022-03-15] MEDS ORDERED: CARA1TAB6 PO (12:00)
[2022-03-15] MEDS ORDERED: HEPARIN SOD (PORCINE) 5000UNITS/ML 1ML VIAL/SYRINGE SQ SCH (14:00)
[2022-03-15] MEDS ORDERED: SENNA 8.6 MG TAB (SENOKOT) PO SCH (21:00)
== END 2022-03-15 12:12 | disposition home or self-care (01) ==
LOC: M ED 16:38 → M ED INP 16:39 → ENRESERV 03-14 14:55 → M MSPAV 03-14 15:32
PROVIDERS: ADMIT Internal Medicine; ATTEND Internal Medicine
DX: R29.6 Repeated falls (principal); G25.2 Other specified forms of tremor; D50.9 Iron deficiency anemia, unspecified; N17.9 Acute kidney failure, unspecified; E11.65 Type 2 diabetes mellitus with hyperglycemia; K27.9 Peptic ulcer, site unspecified, unspecified as acute or chronic, without hemorrhage or perforation; F41.9 Anxiety disorder, unspecified; F11.20 Opioid dependence, uncomplicated; E86.0 Dehydration; M54.2 Cervicalgia; R25.3 Fasciculation; G62.9 Polyneuropathy, unspecified; I10 Essential (primary) hypertension; N40.0 Benign prostatic hyperplasia without lower urinary tract symptoms; Z79.899 Other long term (current) drug therapy; Z79.84 Long term (current) use of oral hypoglycemic drugs
CPT/HCPCS: 36415; 36430; 70551; 72125; 76775; 80047; 80048; 80076; 81000; 82570; 82607; 82728; 82746; 82803; 83036; 83550; 83690; 83935; 84156; 84300; 85014; 85018; 85025; 85027; 86803; 86850; 86900; 86901; 86920; 87389; 87631; 93005; 96361; 96374; 96376; 97161; 97165; 99285; C9113; G0378; J1815; P9016

== ENCOUNTER → 2022-04-26 | Outpatient (REF) ==
[~2022-04-26] MED LIST changes: +COLA100C5 PO; +FERR1TAB8 PO; +MIRT-11 PO; +PANT-23 PO; +SENN18TA PO
== END ==
LOC: M LAB LCGH 11:25